=== PATIENT | male | born 2000 | race Caucasian/White ===

== ENCOUNTER 2019-04-23 13:32 | Inpatient (IN) ==
[2019-04-23] MEDS ORDERED: diazePAM 5 MG TABLET PO ONE (14:23)
[2019-04-23] MEDS ORDERED: HALOPERIDOL LACTATE 5 MG/ML 1 ML VIAL IM STA ×2 (15:25→15:52)
[2019-04-23] MEDS ORDERED: DiphenhydrAMINE HCL 50 MG/ML VIAL IM STA (15:52)
[2019-04-23] MEDS ORDERED: DiphenhydrAMINE HCL 50 MG/ML VIAL ONE (15:55)
[2019-04-23 16:40] LABS: Basophils # (auto) 0.02 K/uL (0-0.2); Basophils % (auto) 0.3 %; Eosinophils # (auto) 0.09 K/uL (0-0.5); Eosinophils % (auto) 1.2 %; Hematocrit (blood only) 44.4 % (42-52); Hemoglobin 16.1 g/dL (14.0-18.0); Immature Granulocytes # (auto) 0.02 K/uL (0.00-0.02); Immature Granulocytes % (auto) 0.3 %; Lymphocytes # (auto) 1.85 K/uL (1.2-3.4); Lymphocytes % (auto) 23.8 %; Mean Corpuscular Hemoglobin 31.8 pg (25-34); Mean Corpuscular Hgb Conc 36.3 g/dL (32-36); Mean Corpuscular Volume 87.6 fL (80-100); Mean Platelet Volume 8.4 fL (7.4-10.4); Monocytes # (auto) 0.84 K/uL (0.11-0.59); Monocytes % (auto) 10.8 %; Neutrophils # (auto) 4.95 K/uL (1.4-6.5); Neutrophils % (auto) 63.6 %; Platelet Count 279 K/uL (130-400); RDW Coefficient of Variation 12.5 % (11.5-14.5); RDW Standard Deviation 39.7 fL (36.4-46.3); Red Blood Count 5.07 M/uL (4.7-6.1); White Blood Count 7.77 K/uL (4.8-10.8)
[2019-04-23 17:02] LABS: Albumin Level 4.5 gm/dl (3.4-5.0); BUN Creatinine Ratio 17.3 (10-20); Calcium 9.2 mg/dl (8.5-10.1); Creatinine Clr Calc Pharmacy 134.4 ml/min; Est GFR (Non-African American) 111.3; Potassium 3.5 mmol/L (3.5-5.1)
[2019-04-23 17:04] LABS: Acetaminophen < 2 ug/ml (10-30)
[2019-04-23 17:05] LABS: Salicylate < 1.7 mg/dl (2.8-20)
[2019-04-23] MEDS ORDERED: LORazepam 2 MG/ML VIAL (IM USE) IM STA (17:08)
[2019-04-23] MEDS ORDERED: ZIPRASIDONE 20 MG/ML SDV IM PRN (17:08)
[2019-04-23 17:12] LABS: Albumin Globulin Ratio 1.3 (0.9-2); Bilirubin,Total 1.1 mg/dl (0.2-1); Globulin 3.3 gm/dl (2.5-4.0); Thyroid Stimulating Hormone 5.33 uIu/ml (0.300-4.500); Total Protein 7.8 gm/dl (6.4-8.2)
[2019-04-23 17:21] LABS: Appearance Urine Clear (Clear); Bacteria Urine Automated Negative (Negative); Bilirubin Urine Negative (Negative); Blood Urine Negative (Negative); Cast Urine Automated 0 /lpf (0-5); Color Urine Yellow; Glucose Urine UA Negative (Negative); Ketones Urine Negative (Negative); Leukocyte Esterase Urine Trace (Negative); Nitrite Urine Negative (Negative); Protein Urine Negative (Negative); RBC Urine Automated 0-4 /hpf (0-4); Specific Gravity Urine 1.013 (1.000-1.030); Urobilinogen Urine Negative (Negative)
[2019-04-23 17:25] LABS: Amphetamines+Metham, Urine Neg (Neg); Barbiturates, Urine Neg (Neg); Benzodiazepine, Urine Neg (Neg); Cocaine, Urine Neg (Neg); MDMA (Ecstacy), Urine Neg (Neg); Methadone, Urine Neg (Neg); Opiate, Urine Neg (Neg); Phencyclidine, Urine Neg (Neg)
[2019-04-23 17:26] LABS: T4 Free Thyroxine 1.21 ng/dl (0.8-1.6)
--- NOTE | 2019-04-23 17:38 | Emergency Department Note ---
Entered by Effie Alves acting as a scribe for Sharad Altamirano MD History of Present Illness General Chief complaint: Anxiety Stated complaint: PANIC ATTACKS,ANXIETY,UNABLE TO SLEEP Time Seen by Provider: 04/23/19 13:52 Source: patient Mode of arrival: ambulatory Limitations: no limitations History of Present Illness Onset (ago): day(s) 4 Location: head Pain Consistency: + constant Relieved By: + none Exacerbated By: + none Associated symptoms: + other (+abdominal pain) Treatments prior to arrival: other (Paxil) The patient is a 18 year old white male w/ PMHx of anxiety who presents to the ED w/ CC of worsening anxiety beginning 4 days ago. He was started on a new medication 4 days ago and states his anxiety has worsened since then. He reports "I feel like I can't get out of my own head". He is currently on break at [facility] and states about 1 month ago, he started having panic attacks. He does take Paxil that is prescribed by Dr. Solo, a family physician in [place]. He admits to passive thoughts of SI. He denies any HI. He has no access to guns or weapons. He has never tried to hurt himself in the past. He is currently living at home with his family and Mom feels comfortable taking him home. He denies any AVH. He admits to some abdominal pain that he thinks is related to his anxiety. Mom notes the patient was treated at the [place] [facility] this past weekend and was given a medication that briefly helped him calm down. Home Medications Home Medications Medication Instructions Recorded Confirmed Type Paxil 10 mg PO DAILY 04/23/19 04/23/19 History hydroxyzine HCl 25 mg PO DAILY PRN 04/23/19 04/23/19 History Allergies Allergy/AdvReac Type Severity Reaction Status Date / Time No Known Allergies Allergy Verified 04/23/19 14:14 Past Med/Surg History Medical History Anxiety Social History Preferred Language: Albanian Feels Safe at Home: Yes Smoking Status: Never smoker Review of Systems See HPI for pertinent positives & negatives. and A total of 10 systems reviewed and were otherwise negative Physical Exam Vital Signs Vital Signs - 24 hr 12/23/19 13:42 04/23/19 17:05 04/23/19 18:12 Temperature 36.5 C Temperature Source Oral Pulse Rate 101 H Pulse Rate [Apical] 98 H 73 Pulse Rhythm Regular Pulse Strength Normal Respiratory Rate 20 24 18 Respiratory Effort / Characteristics Non-Labored Spontaneous Respiratory Depth Normal Respiratory Pattern Regular Blood Pressure 132/80 Blood Pressure [Right Arm] 150/99 H Blood Pressure Mean 97 Blood Pressure Mean [Right Arm] 116 Blood Pressure Position Sitting Pulse Oximetry 97 97 96 Oxygen Delivery Method Room Air Room Air Sepsis Recent Fever Within 48 Hours No Sepsis New/Unexplained Change in Mental Status No Sepsis Action Taken by Nursing No Action Required 04/23/19 18:47 Temperature Temperature Source Pulse Rate 79 Pulse Rate [Apical] Pulse Rhythm Pulse Strength Respiratory Rate 18 Respiratory Effort / Characteristics Respiratory Depth Respiratory Pattern Blood Pressure 146/93 H Blood Pressure [Right Arm] Blood Pressure Mean Blood Pressure Mean [Right Arm] Blood Pressure Position Pulse Oximetry 97 Oxygen Delivery Method Room Air Sepsis Recent Fever Within 48 Hours Sepsis New/Unexplained Change in Mental Status Sepsis Action Taken by Nursing GENERAL: Patient is anxious appearing, well nourished, NAD, non-toxic. EYE EXAM: Normal conjunctiva. PERRL, no anisocoria and EOM's grossly intact w/o pain. OROPHARYNX: Moist mucous membranes. Grossly normal dentition. NECK: Supple, no nuchal rigidity, no adenopathy, non-tender. No signs of mening ismus. LUNGS: Clear to auscultation. Normal chest wall mechanics. HEART: NSR, no MRG. ABDOMEN: Abdomen soft, non-tender, normo-active bowel sounds, no masses, no rebound or guarding. BACK: No CVA TTP. SKIN: No rashes and no bruising. UPPER EXTREMITIES: Upper extremities are grossly normal. LOWER EXTREMITIES: No pitting edema. No calf pain. NEURO EXAM: A&O x3, cranial nerves II-XII grossly intact, normal speech, moves all 4 extremities on command w/o issue. PSYCHIATRIC: Passive SI without plan, no HI or AVH. Course Course 1413: The patient was evaluated in room A8 and a complete history and physical were performed. 1555: The patient is getting very agitated. We will try chemical sedation. 1710: Our psychiatric special education case manager informed me the patient is still agitated and will require additional medication. 0: Zain, our Psychiatric Lockstitcher informed me the patient will be going upstairs to [address]. Administered Medications Discontinued Medications Diazepam (Valium) 5 mg PO NOW ONE Stop: 04/23/19 14:24 Last Admin: 04/23/19 14:34 Dose: 5 mg Documented by: [id number] Diphenhydramine HCl (Benadryl) 50 mg IM NOW STA Stop: 04/23/19 15:53 Last Admin: 04/23/19 15:59 Dose: 50 mg Documented by: [id number] Diphenhydramine HCl (Benadryl) Confirm Administered Dose 50 mg .ROUTE .STK-MED ONE Stop: 04/23/19 15:56 Last Admin: 04/23/19 15:59 Dose: Not Given Documented by: [id number] Haloperidol Lactate (Haldol) 5 mg IM NOW STA Stop: 04/23/19 15:26 Last Admin: 04/23/19 15:32 Dose: 5 mg Documented by: [id number] Haloperidol Lactate (Haldol) 5 mg IM NOW STA Stop: 04/23/19 15:53 Last Admin: 04/23/19 15:58 Dose: 5 mg Documented by: [id number] Lorazepam (Ativan) 2 mg IM NOW STA Stop: 04/23/19 17:09 Last Admin: 04/23/19 17:23 Dose: 2 mg Documented by: [id number] Critical Care Time Critical Care Time: Yes Total Critical Care Time: 45 I have personally spent 45 minutes of critical care time in direct management of this patient. This includes bedside care, interpretation of diagnostic studies, and testing, discussion with consultants, patient, and family members, and other require inpatient management activities. This 45 minutes is in excess of all separately billable procedures. Medical Decision Making Differential Diagnosis Differential diagnoses considered include mood disorder, infection, hypoglycemia, electrolyte abnormalities, cardiac sources, intracerebral event, toxicologic, neurologic, as well as others. Medical Records Attestation: I reviewed the patient's medical records. Home Medications Current Medication List: was personally reviewed by me Laboratory Data Attestation: I reviewed the patient's lab results. Result diagrams: 04/23/19 16:23 04/23/19 16:23 Lab Results 04/23/19 04/23/19 04/23/19 Range/Units 13:49 13:49 16:23 WBC 7.77 (4.8-10.8) K/uL RBC 5.07 (4.7-6.1) M/uL Hgb 16.1 (14.0-18.0) g/dL Hct 44.4 (42-52) % MCV 87.6 (80-100) fL MCH 31.8 (25-34) pg MCHC 36.3 H (32-36) g/dL RDW Std Deviation 39.7 (36.4-46.3) fL RDW Coeff of Isela 12.5 (11.5-14.5) % Plt Count 279 (130-400) K/uL MPV 8.4 (7.4-10.4) fL Immature Gran % (Auto) 0.3 % Neut % (Auto) 63.6 % Lymph % (Auto) 23.8 % [place] % (Auto) 10.8 % Eos % (Auto) 1.2 % Baso % (Auto) 0.3 % Immature Gran # (Auto) 0.02 (0.00-0.02) K/uL Neut # (Auto) 4.95 (1.4-6.5) K/uL Lymph # (Auto) 1.85 (1.2-3.4) K/uL [place] # (Auto) 0.84 H (0.11-0.59) K/uL Eos # (Auto) 0.09 (0-0.5) K/uL Baso # (Auto) 0.02 (0-0.2) K/uL Sodium (136-145) mmol/L Potassium (3.5-5.1) mmol/L Chloride (98-107) mmol/L Carbon Dioxide (21-32) mmol/L Anion Gap (3-11) BUN (7-18) mg/dl Creatinine (0.6-1.4) mg/dl Est Cr Clr Drug Dosing ml/min Est GFR ( Amer) Est GFR (Non-Af Amer) BUN/Creatinine Ratio (10-20) Glucose (70-99) mg/dl Calcium (8.5-10.1) mg/dl Total Bilirubin (0.2-1) mg/dl AST (15-37) U/L ALT (12-78) U/L Alkaline Phosphatase (45-117) U/L Total Protein (6.4-8.2) gm/dl Albumin (3.4-5.0) gm/dl Globulin (2.5-4.0) gm/dl Albumin/Globulin Ratio (0.9-2) TSH (0.300-4.500) uIu/ml Free T4 (0.8-1.6) ng/dl Urine Color Yellow Urine Appearance Clear (Clear) Urine pH 8.0 H (4.5-7.5) Ur Specific [place] 1.013 (1.000-1.030) Urine Protein Negative (Negative) Urine Glucose (UA) Negative (Negative) Urine Ketones Negative (Negative) Urine Blood Negative (Negative) Urine Nitrite Negative (Negative) Urine Bilirubin Negative (Negative) Urine Urobilinogen Negative (Negative) Ur Leukocyte Esterase Trace H (Negative) Urine WBC (Auto) 10-30 H (0-5) /hpf Urine RBC (Auto) 0-4 (0-4) /hpf U Hyaline Cast (Auto) 0 (0-5) /lpf U Epithel Cells (Auto) 5-10 H (0-5) /lpf Urine Bacteria (Auto) Negative (Negative) Salicylates (2.8-20) mg/dl Urine Opiates Screen Neg (Neg) Ur Methadone, Qual Neg (Neg) Acetaminophen (10-30) ug/ml Urine Barbiturates Neg (Neg) Ur Phencyclidine (PCP) Neg (Neg) U Amphetamin/Meth Scrn Neg (Neg) MDMA (Ecstasy) Screen Neg (Neg) U Benzodiazepines Scrn Neg (Neg) Ur Cocaine Metabolite Neg (Neg) U Marijuana (THC) Screen Neg (Neg) Ethyl Alcohol mg/dL (0-3) mg/dl 04/23/19 04/23/19 04/23/19 Range/Units 16:23 16:23 16:23 WBC (4.8-10.8) K/uL RBC (4.7-6.1) M/uL Hgb (14.0-18.0) g/dL Hct (42-52) % MCV (80-100) fL MCH (25-34) pg MCHC (32-36) g/dL RDW Std Deviation (36.4-46.3) fL RDW Coeff of Isela (11.5-14.5) % Plt Count (130-400) K/uL MPV (7.4-10.4) fL Immature Gran % (Auto) % Neut % (Auto) % Lymph % (Auto) % [place] % (Auto) % Eos % (Auto) % Baso % (Auto) % Immature Gran # (Auto) (0.00-0.02) K/uL Neut # (Auto) (1.4-6.5) K/uL Lymph # (Auto) (1.2-3.4) K/uL [place] # (Auto) (0.11-0.59) K/uL Eos # (Auto) (0-0.5) K/uL Baso # (Auto) (0-0.2) K/uL Sodium 138 (136-145) mmol/L Potassium 3.5 (3.5-5.1) mmol/L Chloride 106 (98-107) mmol/L Carbon Dioxide 24 (21-32) mmol/L Anion Gap 8.0 (3-11) BUN 17 (7-18) mg/dl Creatinine 0.98 (0.6-1.4) mg/dl Est Cr Clr Drug Dosing 134.4 ml/min Est GFR ( Amer) 129.0 Est GFR (Non-Af Amer) 111.3 BUN/Creatinine Ratio 17.3 (10-20) Glucose 94 (70-99) mg/dl Calcium 9.2 (8.5-10.1) mg/dl Total Bilirubin 1.1 H (0.2-1) mg/dl AST 12 L (15-37) U/L ALT 13 (12-78) U/L Alkaline Phosphatase 95 (45-117) U/L Total Protein 7.8 (6.4-8.2) gm/dl Albumin 4.5 (3.4-5.0) gm/dl Globulin 3.3 (2.5-4.0) gm/dl Albumin/Globulin Ratio 1.3 (0.9-2) TSH 5.330 H (0.300-4.500) uIu/ml Free T4 1.21 (0.8-1.6) ng/dl Urine Color Urine Appearance (Clear) Urine pH (4.5-7.5) Ur Specific [place] (1.000-1.030) Urine Protein (Negative) Urine Glucose (UA) (Negative) Urine Ketones (Negative) Urine Blood (Negative) Urine Nitrite (Negative) Urine Bilirubin (Negative) Urine Urobilinogen (Negative) Ur Leukocyte Esterase (Negative) Urine WBC (Auto) (0-5) /hpf Urine RBC (Auto) (0-4) /hpf U Hyaline Cast (Auto) (0-5) /lpf U Epithel Cells (Auto) (0-5) /lpf Urine Bacteria (Auto) (Negative) Salicylates < 1.7 L (2.8-20) mg/dl Urine Opiates Screen (Neg) Ur Methadone, Qual (Neg) Acetaminophen < 2 L (10-30) ug/ml Urine Barbiturates (Neg) Ur Phencyclidine (PCP) (Neg) U Amphetamin/Meth Scrn (Neg) MDMA (Ecstasy) Screen (Neg) U Benzodiazepines Scrn (Neg) Ur Cocaine Metabolite (Neg) U Marijuana (THC) Screen (Neg) Ethyl Alcohol mg/dL < 3.0 (0-3) mg/dl ECG Data Attestation: I personally reviewed and interpreted this ECG as follows: Indication: + other (anxiety) Rate (beats per minute): 72 Rhythm: + normal sinus ECG [place]: + Normal ECG ST segments: + T-wave inversions (Inferior) ECG Findings: + Other (Normal intervals, no STS changes) Comparison ECG Date: no prior available Blood Pressure Blood Pressure Findings: Elevated blood pressure Blood Pressure Disposition: further management by hospitalist [facility] Narrative The patient is a 18 year old white male w/ PMHx of anxiety who presents to the ED w/ CC of worsening anxiety beginning 4 days ago. Patient was seen and evaluated the bedside. The patient did present with increasing panic and anxiety. The patient has been unable to sleep for the last 4 days. The patient was recently started on Paxil and hydroxyzine but without relief and believes that these this is made his symptoms worse. Patient is currently not in any extremitas and I did discuss the possibility of just try by mouth medications and if he improves there could be a reasonable safety plan as the patient had complained of some suicidal ideation but it was passive and related to his panic attacks and anxiety. The patient did receive Valium but did not improve so the patient was given some injection intramuscular medications. The patient continued to be more agitated. Due to concern for the safety patient as well as staff the patient did receive additional chemical sedation. Patient subsequently did have blood work completed along with an EKG. EKG does show T wave inversions but no chest pains. The patient was deemed medically cleared and the patient was able to settle down after additional medications. Patient was subsequently mated to [address] for additional treatment. Impression & Plan Anxiety, Panic attack, Lack of adequate sleep, Suicidal ideation Discharge Plan Visit Data Chief Complaint: Anxiety Stated Complaint: PANIC ATTACKS,ANXIETY,UNABLE TO SLEEP ED Provider: Sharad Altamirano Discharge Problem: Anxiety, Panic attack, Lack of adequate sleep, Suicidal ideation Patient Disposition: Still a Patient Discharge Instructions Interventions: ED Discharge Assessment Last Done: 04/23/19 18:47 Forms Stand Alone Forms: My [facility], Suicide Prevention Resources Prescriptions Prescriptions: No Action Paxil 10 mg tablet 10 mg PO DAILY RF: 0 hydroxyzine HCl 25 mg tablet 25 mg PO DAILY PRN (Reason: Anxiety) RF: 0 Referrals Referrals: Kimberly Pyle DO [Primary Care Provider] - The scribe's documentation has been prepared under my direction and personally reviewed by me in its entirety. I confirm that the note above accurately reflects all work, treatment, procedures, and medical decision making performed by me.
[2019-04-23] MEDS ORDERED: ACETAMINOPHEN 325 MG TAB PO PRN (19:01)
[2019-04-23] MEDS ORDERED: MAGNESIUM HYDROXIDE SUSP 30 ML UDC PO PRN (19:01)
[2019-04-23] MEDS ORDERED: SODIUM CHLORIDE 0.65% NA SOLN 45 ML (OCEAN) PRN (19:01)
[2019-04-23] MEDS ORDERED: BISMUTH SUBSALICYLATE PER ML OMNICELL CHARGE PO PRN (19:01)
[2019-04-23] MEDS ORDERED: ALUMINUM/MAGNESIUM SUSP 30 ML UDC PO PRN (19:01)
[2019-04-23] MEDS ORDERED: hydrOXYzine HCl 10 MG TAB PO PRN (19:04)
[2019-04-23] MEDS ORDERED: CHLORPROMAZINE HCL 25 MG TABLET PO PRN (19:06)
--- NOTE | 2019-04-24 11:28 | History & Physical ---
Date of Service April 24, 2019 Impression / Recommendations Impression 18-year-old male college student with a history of anxiety, treated successfully in the past with therapy, now with return of symptoms over the past month and severe worsening over the past 4 days in the context of starting paroxetine. Reports a feeling of "constant panic," with restlessness, inability to sleep, extremely elevated energy, impaired focus, which is very distressing and leading to suicidal thoughts. The differential includes severe anxiety and bipolar disorder. He reports a history of mood instability over the past 6 months, and it certainly appears he was activated by the SSRI, and he has a strong family history of bipolar disorder, so we will treat as a manic episode and avoid antidepressants. (1) Suicidal ideation: Continue voluntary hospitalization. Patient is admitted to 72-hour notice; explained to him that I do not feel he is safe for discharge currently given the severity of his symptoms and lack of any discharge plan. His mother has been contacted by staff and agrees he is not stable for discharge. Will encourage him to rescind the noticed and engage fully in treatment. -Once his symptoms are under better control, he will need a family meeting with parents, including review of recommendations to limit access to medications, firearms, and other means of suicide. Present on Admission?: Yes (2) Anxiety: 04/24 -patient reporting constant symptoms of panic since starting paroxetine 4 days ago, and prior to that reports intermittent panic attacks, constant worrying, and unstable mood. -Stop paroxetine, and offer clonazepam 1 mg every 6 hours as needed panic. -Staff to assist the patient in behavioral techniques for managing anxiety. Present on Admission?: Yes (3) Bipolar 1 disorder: 04/24 -patient reports a history of unstable moods over the past 6 months, with periods of depression and hypomania/lori. He is a somewhat limited historian at this time due to the severity of his current symptoms, so collateral information from family would be helpful. He has a strong family history of bipolar disorder, and is clearly activated on an SSRI, so current working diagnosis is bipolar. We will avoid antidepressants and start olanzapine 5 mg twice daily and 2.5 mg as needed. Reviewed risks, benefits, and side effects, and will get fasting labs if he is going to stay on this medication. -Chlorpromazine 100 mg at bedtime as needed sleep. -For for outpatient treatment with a psychiatrist and therapist. Present on Admission?: Yes Inventory Assets Strengths: Supportive family Needs: Symptom control, regular therapy Risk Factors Assessment Male: Yes : Yes Health Problems: No Mental Health Diagnoses: Yes Substance Use Disorders: No Previous Attempt: No Family History of Suicide: No Previous Psychiatric Hospitalization: No Hopelessness: Yes Smoker: No Protective Factors Assessment : No Responsible for Young Children: No Employed: No Supportive Family: Yes Good Rapport with Provider: No Psychiatric History Identifying Data CODY SALAZAR is a 18-year-old M from [place] who attends [employer], has a history of anxiety recently diagnosed/treated by his PCP, and was admitted on 04/23/19 19:01 on a 201 voluntary commitment after presenting to the ER with inability to sleep, anxiety, restlessness, and agitation. Chief Complaint "Yesterday I hadn't slept for 4 days really, still haven't slept at all, having panic attacks every second". History of Present Illness Patient presented to the ER yesterday, 04/23/2019, reporting worsening anxiety and inability to sleep. He stated that he developed panic attacks about 1 month ago, saw his PCP last week who started Paxil 10 mg, after which symptoms worsened. He reported he been unable to sleep for the past 5 days and "cannot get out of my head." He is a freshman at [employer], just finished the first semester, did well, and returned home for the holidays. He reported hopelessness and suicidal thoughts, stating he did not want to be alive "if this is how I am going to feel." His mother reported that he struggled with anxiety during his gregg year of high school, and saw a therapist at that time with improvement until about a month ago. He was unable to identify any exacerbating factors/stressors. He was noted to be tremulous, restless, and extremely anxious in the ER, felt he was "losing it," and received Haldol 5 mg IM asked to, Lorazepam 2 mg, diazepam 5 mg, and diphenhydramine 50 mg. Admission labs notable for elevated TSH 5.330, with normal T4 1.21. CBC and CMP normal, UA unremarkable, UDS negative. Upon arrival to the unit, he received hydroxyzine 100 mg, and slept poorly overnight, frequently awakening and reporting high anxiety. This morning received chlorpromazine 50 mg. He submitted a 72-hour notice requesting to withdrawal from treatment, stating he was bored. yarn worker spoke with his mother, who stated that he was placed on on academic probation at the end of his freshman year last year which caused some anxiety. He did better academically this semester, but 1 month ago started to worry about things like people dying. His mother was informed that he submitted a 72-hour notice, and expressed concerns about this, feeling that he needed treatment and was not stable. On my assessment, he states he has been having constant panic, with shaking, fearfulness, crying, which started 4 days ago when he started paroxetine. Prior to that he had anxiety "that wasn't that bad, calm stuff." He is unable to explain his anxiety symptoms prior to 4 days ago. States he was sleeping 6-7 hours a night until he started paroxetine . 04/19, and had "really bad panic attacks all night, couldn't sleep." States he was also taking OTC sleeping pills, doesn't know name, one tab a night. Appetite has been decreased since ., not eating. Denies exacerbating and alleviating symptoms, "just panic and fear, can't do anything about it." States he is afraid of "just random stuff, dying, racing thoughts." Mood is "restless and shaky," with frequent crying spells. He is not bathing or putting on clean clothes, and has been "trying to do everything to distract myself to change it, but it wasn't working." States he came to [facility] because "didn't want it to be [place], because people would know." States that in college he was "out of control, had panic attacks randomly," about once a week, with symptoms lasting 10 minutes. Reports unstable mood over the past semester, with periods of low mood for several days, then elevated mood for several days. Reports racing thoughts, talking excessively, but denies increase in goal directed or risk taking behavior. States his current symptoms are similar to what he experienced in HS, "but way worse." Denies psychotic symptoms, HI, OCD, PTSD. Reports suicidal thoughts over the past few days, stating he doesn't want to live like this, "it's terrible, can't get relief, just scared." When asked about his request to leave, he says "I want to go home, be with my family, I can't take this, just so scared." States he has wondered if he has bipolar disorder, as multiple relatives have it. Past Psychiatric History Previous Psych History: History of anxiety -gregg year in high school saw a counselor and symptoms improved. Current Psychiatric Diagnosis: Depression and Anxiety Outpatient Services: Has never seen a psychiatrist. Saw Vanessa at [facility] once last week, but did not make a follow up appt. Previous Psych Admissions: Denies History of Previous Suicide Attempt: No Past Medication Trials: Paxil 10 mg started last week by PCP, Dr. Kimberly Pyle in [place] Allergies Allergy/AdvReac Type Severity Reaction Status Date / Time No Known Allergies Allergy Verified 04/23/19 14:14 Home Medications Home Medications Medication Instructions Recorded Confirmed Type Paxil 10 mg PO DAILY 04/23/19 04/23/19 History hydroxyzine HCl 25 mg PO DAILY PRN 04/23/19 04/23/19 History Family History Family History of: Bipolar Family Mental Health History Comment: On the maternal side, pts grandmother and uncle have bipolar disorder. Alcohol History Hx of Alcohol Use Over the Past 12 Months: Yes ("Socially") Smoking Use Have You Smoked or Used Tobacco Products in the Last 30 Days: No Smoking Status: Never smoker Substance History Hx of Prescription Med Misuse Over the Past 12 Months: No Hx of Over the Counter Med Misuse Over the Past 12 Months: No Hx of Inhalent Misuse Over the Past 12 Months: No Hx of Organic Substance Use Over the Past 12 Months: Yes (smoking pot daily until 1 month ago) Hx of Illegal Substances/Street Drug Use Over Past 12 Months: No Problems as a Result of Past Substance Use: None Identified Reports he was drinking on weekends (6-7 beers/day) and smoking pot daily until 1 month ago, then stopped when anxiety became problematic. Denies cocaine and stimulant use. Personal History Living Arrangements: Home Living Arrangements Comments: Lives with parents in [place] when not at school Childhood: Grew up in [place] Highest Grade Completed: Some College Highest Grade Completed Comment: [employer] student, majoring in sports Administration, and states that his grades are good. Employment Status: Student Marital Status: Single Number Of Children: 0 Beliefs That Will Affect Care: None Current Legal Problems: No Hx Traumatic Life Events: No Patient History Medical History Anxiety Social History Preferred Language: Thai Communication Ability: Effective Roll Tester Required: No Beliefs That Will Affect Care: None Feels Safe at Home: Yes Smoking Status: Never smoker Review of Systems Review of Systems: All systems reviewed & are unremarkable except as noted in HPI & below Physical Exam Psychiatric: Orientation: alert and cooperative Apperance: appropriately dressed Malodorous and unkempt. Tall, very thin. Appears distraught. Eye Contact: + poor eye contact Motor Behavior: + psychomotor agitation (Bouncing feet up and down throughout the assessment) Speech: normal rate/rhythm/volume of speech Affect: + depressed affect, + anxious affect and mood congruent with affect Mood: + depressed mood and + anxious mood Thought Process: + thought process not linear or logical Thought Content: + preoccupation (With anxiety and feeling poorly) and + hopelessness Reports feeling overwhelmed, unable to rationally manipulate information Suicidal Thoughts: + reports suicidal thoughts Homicidal Thoughts: denies homicidal thoughts Hallucinations: no auditory hallucinations and no visual hallucinations Cognition: attention grossly intact (Have to repeat questions and redirect multiple times as often answers with unrelated information, appears anxiety related rather than psychotic in nature) and language grossly intact; + recent memory not intact Insight: + impaired insight Judgement: + impaired judgement Vital Signs (Past 24 Hours): Last Vital Signs Temp 36.6 C 04/24/19 08:08 Pulse 86 04/24/19 08:08 Resp 18 04/24/19 08:08 BP 159/99 H 04/24/19 08:08 Pulse Ox 97 04/23/19 18:47 Exam Statement: A physical exam was performed in the ER prior to admission to the unit by Dr. Sharad Altamirano. I accept that physical as correct/medical clearance for the inpatient physical exam. Results & Data Laboratory Results Laboratory Results - last 24 hr 04/23/19 04/23/19 04/23/19 13:49 13:49 16:23 WBC 7.77 RBC 5.07 Hgb 16.1 Hct 44.4 MCV 87.6 MCH 31.8 MCHC 36.3 H RDW Std Deviation 39.7 RDW Coeff of Isela 12.5 Plt Count 279 MPV 8.4 Immature Gran % (Auto) 0.3 Neut % (Auto) 63.6 Lymph % (Auto) 23.8 Gregg % (Auto) 10.8 Eos % (Auto) 1.2 Baso % (Auto) 0.3 Immature Gran # (Auto) 0.02 Neut # (Auto) 4.95 Lymph # (Auto) 1.85 Gregg # (Auto) 0.84 H Eos # (Auto) 0.09 Baso # (Auto) 0.02 Sodium Potassium Chloride Carbon Dioxide Anion Gap BUN Creatinine Est Cr Clr Drug Dosing Est GFR ( Amer) Est GFR (Non-Af Amer) BUN/Creatinine Ratio Glucose Calcium Total Bilirubin AST ALT Alkaline Phosphatase Total Protein Albumin Globulin Albumin/Globulin Ratio TSH Free T4 Urine Color Yellow Urine Appearance Clear Urine pH 8.0 H Ur Specific [place] 1.013 Urine Protein Negative Urine Glucose (UA) Negative Urine Ketones Negative Urine Blood Negative Urine Nitrite Negative Urine Bilirubin Negative Urine Urobilinogen Negative Ur Leukocyte Esterase Trace H Urine WBC (Auto) 10-30 H Urine RBC (Auto) 0-4 U Hyaline Cast (Auto) 0 U Epithel Cells (Auto) 5-10 H Urine Bacteria (Auto) Negative Salicylates Urine Opiates Screen Neg Ur Methadone, Qual Neg Acetaminophen Urine Barbiturates Neg Ur Phencyclidine (PCP) Neg U Amphetamin/Meth Scrn Neg MDMA (Ecstasy) Screen Neg U Benzodiazepines Scrn Neg Ur Cocaine Metabolite Neg U Marijuana (THC) Screen Neg Ethyl Alcohol mg/dL 04/23/19 04/23/19 04/23/19 16:23 16:23 16:23 WBC RBC Hgb Hct MCV MCH MCHC RDW Std Deviation RDW Coeff of Isela Plt Count MPV Immature Gran % (Auto) Neut % (Auto) Lymph % (Auto) Gregg % (Auto) Eos % (Auto) Baso % (Auto) Immature Gran # (Auto) Neut # (Auto) Lymph # (Auto) Gregg # (Auto) Eos # (Auto) Baso # (Auto) Sodium 138 Potassium 3.5 Chloride 106 Carbon Dioxide 24 Anion Gap 8.0 BUN 17 Creatinine 0.98 Est Cr Clr Drug Dosing 134.4 Est GFR ( Amer) 129.0 Est GFR (Non-Af Amer) 111.3 BUN/Creatinine Ratio 17.3 Glucose 94 Calcium 9.2 Total Bilirubin 1.1 H AST 12 L ALT 13 Alkaline Phosphatase 95 Total Protein 7.8 Albumin 4.5 Globulin 3.3 Albumin/Globulin Ratio 1.3 TSH 5.330 H Free T4 1.21 Urine Color Urine Appearance Urine pH Ur Specific [place] Urine Protein Urine Glucose (UA) Urine Ketones Urine Blood Urine Nitrite Urine Bilirubin Urine Urobilinogen Ur Leukocyte Esterase Urine WBC (Auto) Urine RBC (Auto) U Hyaline Cast (Auto) U Epithel Cells (Auto) Urine Bacteria (Auto) Salicylates < 1.7 L Urine Opiates Screen Ur Methadone, Qual Acetaminophen < 2 L Urine Barbiturates Ur Phencyclidine (PCP) U Amphetamin/Meth Scrn MDMA (Ecstasy) Screen U Benzodiazepines Scrn Ur Cocaine Metabolite U Marijuana (THC) Screen Ethyl Alcohol mg/dL < 3.0 Current Inpatient Medications Current Inpatient Medications: Current Inpatient Medications Acetaminophen (Tylenol) 650 mg PO Q4H PRN PRN Reason: Headache or Minor Fever Stop: 05/23/19 19:00 Al Hydrox/Mg Hydrox/Simethicone (Maalox) 30 ml PO Q4H PRN PRN Reason: GI Upset Stop: 05/23/19 19:00 Bismuth Subsalicylate (Kaopectate) 15 ml PO PRN PRN PRN Reason: Loose Stool Stop: 05/23/19 19:00 Chlorpromazine HCl (Thorazine) 50 mg PO HS PRN PRN Reason: Anxiety Stop: 05/23/19 19:05 Last Admin: 04/24/19 10:19 Dose: 50 mg Documented by: Hydroxyzine HCl (Vistaril) 50 mg PO HSZ PRN PRN Reason: Insomnia Stop: 05/23/19 19:00 Hydroxyzine HCl (Vistaril) 25 mg PO Q4H PRN PRN Reason: Anxiety Stop: 05/23/19 19:00 Hydroxyzine HCl (Vistaril) 100 mg PO HS PRN PRN Reason: Insomnia Stop: 05/24/19 01:08 Last Admin: 04/24/19 01:22 Dose: 100 mg Documented by: Magnesium Hydroxide (Milk Of Magnesia) 30 ml PO DAILY PRN PRN Reason: Constipation Stop: 05/23/19 19:00 Sodium Chloride ([place] Nasal) 1 - 2 sprays NA PRN PRN PRN Reason: Nasal Dryness/Congestion Stop: 05/23/19 19:00 Ziprasidone (Geodon) 10 mg IM ONE PRN PRN Reason: Agitation Stop: 05/23/19 17:07
[2019-04-24] MEDS ORDERED: OLANZAPINE 2.5 MG TAB PO PRN (11:42)
[2019-04-24] MEDS ORDERED: clonazePAM 1 MG TAB PO PRN (11:54)
[2019-04-24] MEDS ORDERED: CHLORPROMAZINE HCL 100 MG TABLET PO PRN (11:57)
[2019-04-24] MEDS: OLANZapine 5 MG TABLET PO SCH (12:13)
--- NOTE | 2019-04-25 09:32 | Psychiatric Progress Note ---
Date of Service April 25, 2019 Impression / Recommendations Impression 18-year-old male college student with a history of anxiety, treated successfully in the past with therapy, now with return of symptoms over the past month and severe worsening over the 5 days prior to hospitalization in the context of starting paroxetine. Reports a feeling of "constant panic," with restlessness, inability to sleep, extremely elevated energy, impaired focus, which is very distressing and led to suicidal thoughts. The differential includes severe anxiety and bipolar disorder. He reports a history of mood instability over the past 6 months, was activated by the SSRI, and he has a strong family history of bipolar disorder, so we will treat as a manic episode and avoid antidepressants. (1) Suicidal ideation: Continue voluntary hospitalization. Patient is admitted to 72-hour notice; explained to him that I do not feel he is safe for discharge currently given the severity of his symptoms and lack of any discharge plan. His mother has been contacted by staff and agrees he is not stable for discharge. Will encourage him to rescind the noticed and engage fully in treatment. -Once his symptoms are under better control, he will need a family meeting with parents, including review of recommendations to limit access to medications, firearms, and other means of suicide. 04/25 -patient refusing to rescind his 72-hour notice, which expires 04/27/2019 -He will need a family meeting with parents as he was unable to participate yesterday. -He will need referral for outpatient treatment (possibly at [facility], with bridge appointment with PCP in the meantime) -Encouraged him to work on coping skills and discharge safety plan (2) Anxiety: 04/24 -patient reporting constant symptoms of panic since starting paroxetine 4 days ago, and prior to that reports intermittent panic attacks, constant worrying, and unstable mood. -Stop paroxetine, and offer clonazepam 1 mg every 6 hours as needed panic. -Staff to assist the patient in behavioral techniques for managing anxiety. (3) Bipolar 1 disorder: 04/24 -patient reports a history of unstable moods over the past 6 months, with periods of depression and hypomania/lori. He is a somewhat limited historian at this time due to the severity of his current symptoms, so collateral information from family would be helpful. He has a strong family history of bipolar disorder, and is clearly activated on an SSRI, so current working diagnosis is bipolar. We will avoid antidepressants and start olanzapine 5 mg twice daily and 2.5 mg as needed. Reviewed risks, benefits, and side effects, and will get fasting labs if he is going to stay on this medication. -Chlorpromazine 100 mg at bedtime as needed sleep. -For for outpatient treatment with a psychiatrist and therapist. 04/25 -family meeting held yesterday with patient's parents, as he submitted a request withdrawal from treatment and they expressed concern. Diagnosis and the need for outpatient treatment were discussed. They will likely need another meeting prior to discharge as the patient was not able to participate. -Continue olanzapine, check fasting labs tomorrow morning for baseline on an atypical, and continue to provide education about the differential diagnosis and treatment recommendations. -Refer for outpatient treatment as above. Inventory Assets Strengths: Supportive family Needs: Symptom control, regular therapy Risk Factors Assessment Male: Yes : Yes Health Problems: No Mental Health Diagnoses: Yes Substance Use Disorders: No Previous Attempt: No Family History of Suicide: No Previous Psychiatric Hospitalization: No Hopelessness: Yes Smoker: No Protective Factors Assessment : No Responsible for Young Children: No Employed: No Supportive Family: Yes Good Rapport with Provider: No Interval History Identifying Information CODY SALAZAR is a 18-year-old M from [place] who attends [facility], has a history of anxiety recently diagnosed/treated by his PCP, and was admitted on 04/23/19 19:01 on a 201 voluntary commitment after presenting to the ER with inability to sleep, anxiety, restlessness, and agitation. Chief Complaint " Better, I slept". Review of Systems Sleep Information Total Hours of Sleep: 11 Sleep Comments: pt appeared to sleep four hrs during evening shift. pt on q-15 minute checks Meal Information Percent Meal Consumed - Breakfast: 25 Percent Meal Consumed - Lunch: 50 Subjective Subjective Patient was seen & assessed and interval progress reviewed with nursing. Staff report he received multiple as needed medications yesterday for anxiety, including chlorpromazine and clonazepam. He reported persistent anxiety, restlessness, and eventually fell asleep mid afternoon. He submitted a 72-hour notice requesting to be discharged, and his mother was informed and expressed concern. A family meeting was held with his parents in the afternoon, and the patient did not attend his he had finally fallen asleep. His parents indicated he had a history of anxiety in the past, although not to this degree, and that it was usually triggered by stressful events. They stated that he grew up with his grandparents living with the family, and decompensated after his grandfather 2 years ago. Additionally, his grandmother has recently been very ill, and they believe the stress of school and his grandmother's illness or exacerbating factors. His parents also stated that the patient recently had a conversation with his girlfriend about not having children because he did not want them to suffer from anxiety like he did. On my assessment, the patient was seen in his room, where he has returned to bed but is awake. He states he feels much better today, anxiety is reduced significantly, and he slept well overnight. He thinks that the olanzapine has been very helpful, and denies any side effects to medications. He reports a good visit with his parents yesterday, and states they are coming again to visit today. He remains very anxious to be discharged, stating he is bored here and "I just want to go home." He states he has no outpatient treatment, and although he recently saw a new PCP, does not have a follow-up appointment scheduled. He has not started to work on his safety plan, and cannot describe how he would manage anxiety should it return after discharge. Reviewed treatment recommendations with him in detail, including the need to have a meeting with parents and arrange outpatient treatment, and encouraged him to start working on his patient workbook with specific attention to coping skills and his safety plan. Reviewed recommendations to rescind his 72-hour notice and fully engage in treatment to ensure that he is stable before discharge, which he does not want to do. Physical Exam Psychiatric Orientation: alert; + uncooperative (Partially cooperative) Apperance: appropriately dressed and appeared stated age Very thin, malodorous Eye Contact: + poor eye contact Motor Behavior: steady gait and station and no abnormal motor movements Minimal speech, slightly rapid Affect: + anxious affect But less so than on admission "Better." Thought Process: goal directed thought process Irrational; states anxiety has been so severe has been unable to function or do anything, feels unable to continue in that state, but simultaneously asking to leave immediately as he feels slightly improved, despite having no outpatient plan. Thought Content: + cognitive distortions Suicidal Thoughts: denies suicidal thoughts Homicidal Thoughts: denies homicidal thoughts Hallucinations: no auditory hallucinations Cognition: recent memory grossly intact and language grossly intact Insight: + limited insight Judgement: + limited judgement Vital Signs (Past 24 Hours) Last Vital Signs Temp 36.6 C 04/24/19 08:08 Pulse 86 04/24/19 08:08 Resp 18 04/24/19 08:08 BP 159/99 H 04/24/19 08:08 Pulse Ox 97 04/23/19 18:47 Results & Data Current Inpatient Medications Current Inpatient Medications: Current Inpatient Medications Acetaminophen (Tylenol) 650 mg PO Q4H PRN PRN Reason: Headache or Minor Fever Stop: 05/23/19 19:00 Al Hydrox/Mg Hydrox/Simethicone (Maalox) 30 ml PO Q4H PRN PRN Reason: GI Upset Stop: 05/23/19 19:00 Bismuth Subsalicylate (Kaopectate) 15 ml PO PRN PRN PRN Reason: Loose Stool Stop: 05/23/19 19:00 Chlorpromazine HCl (Thorazine) 100 mg PO HS PRN PRN Reason: Anxiety Stop: 05/23/19 19:05 Clonazepam (Klonopin) 1 mg PO Q6 PRN PRN Reason: Anxiety Stop: 05/24/19 11:53 Last Admin: 04/24/19 12:13 Dose: 1 mg Documented by: Hydroxyzine HCl (Vistaril) 25 mg PO Q4H PRN PRN Reason: Anxiety Stop: 05/23/19 19:00 Hydroxyzine HCl (Vistaril) 100 mg PO HS PRN PRN Reason: Insomnia Stop: 05/24/19 01:08 Last Admin: 04/24/19 01:22 Dose: 100 mg Documented by: Magnesium Hydroxide (Milk Of Magnesia) 30 ml PO DAILY PRN PRN Reason: Constipation Stop: 05/23/19 19:00 Olanzapine (Zyprexa) 5 mg PO BID QUINTIN Stop: 05/24/19 11:44 Last Admin: 04/24/19 12:13 Dose: 5 mg Documented by: Olanzapine (Zyprexa) 2.5 mg PO Q6 PRN PRN Reason: Anxiety Stop: 05/24/19 11:59 Sodium Chloride ([place] Nasal) 1 - 2 sprays NA PRN PRN PRN Reason: Nasal Dryness/Congestion Stop: 05/23/19 19:00 Mental Health & Subst Abuse Tx Therapist Name of Therapist: [facility] Liquid Natural [employer] Plant Operator Name of Liquid Natural Gas Plant Operator: Denies/None Post Discharge Appointments Primary Care Physician Name Of Family Doctor: Dr. Pyle
[2019-04-25] MEDS: OLANZapine 5 MG TABLET PO SCH ×2 (10:23→14:42)
[2019-04-25] MEDS ORDERED: BENZTROPINE MESYLATE 1 MG TAB PO STA (16:15)
[2019-04-25] MEDS ORDERED: BENZTROPINE MESYLATE 1 MG/ML 2 ML AMP IM PRN (16:15)
[2019-04-25] MEDS ORDERED: BENZTROPINE MESYLATE 1 MG TAB PO PRN (16:15)
--- NOTE | 2019-04-25 16:45 | Communication Note ---
Date of Service: April 25, 2019 Patient reported uncomfortable jaw stiffness and was observed with mouth open, was able to swallow water so ordered benztropine 2mg. He reported improvement 20 min later. Decreased olanzapine dose to 2.5mg bid.
[2019-04-25] MEDS: OLANZAPINE 2.5 MG TAB PO SCH (21:26)
[2019-04-26 07:27] LABS: Glucose Fasting 90 mg/dl (70-99)
[2019-04-26 07:34] LABS: Chol HDL Ratio 4; Cholesterol 136 mg/dl (0-200); HDL Cholesterol 36 mg/dl; LDL Cholesterol Calculated 82 mg/dl; Triglycerides 91 mg/dl (0-150); VLDL Cholesterol 18 mg/dl
[2019-04-26] MEDS: OLANZAPINE 2.5 MG TAB PO SCH (08:34)
--- NOTE | 2019-04-26 10:12 | Psychiatric Progress Note ---
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 Reports a feeling of "constant panic," with restlessness, inability to sleep, extremely elevated energy, impaired focus, which is very distressing and led to suicidal thoughts. The differential includes severe anxiety and bipolar disorder. He reports a history of mood instability over the past 6 months, was activated by the SSRI, and he has a strong family history of bipolar disorder, so we will treat as a manic episode and avoid antidepressants. Patient did experience dystonic reaction after several doses of olanzapine, twice daily dosing was subsequently tapered to 2.5 mg. We will further reduce that to 2.5 mg nightly, but continue available as needed dosing if necessary throughout day. Although patient reports significant improvement in his condition and resolution of suicidal ideation, it remains highly concerning that he does not yet have aftercare arrangements or a clear safety plan. Patient will be encouraged to work on these throughout the day today, in preparation for likely discharge soon. Patient is at high risk of destabilization of mood and possible harm to self if he is discharged prematurely without adequate follow-up appointments and outpatient support services. (1) Suicidal ideation: Continue voluntary hospitalization. Patient is admitted to 72-hour notice; explained to him that I do not feel he is safe for discharge currently given the severity of his symptoms and lack of any discharge plan. His mother has been contacted by staff and agrees he is not stable for discharge. Will encourage him to rescind the noticed and engage fully in treatment. -Once his symptoms are under better control, he will need a family meeting with parents, including review of recommendations to limit access to medications, firearms, and other means of suicide. 04/25 -patient refusing to rescind his 72-hour notice, which expires 04/27/2019 -He will need a family meeting with parents as he was unable to participate yesterday. -He will need referral for outpatient treatment (possibly at [facility], with bridge appointment with PCP in the meantime) -Encouraged him to work on coping skills and discharge safety plan 04/26 - Denies SI, refusing to rescind 72-hr notice. Not planning for discharge today as patient remains at high risk of mood destabilization and recurrence of SI with premature discharge - especially as he does not have a solidified aftercare plan for outpatient follow up. - Follow-up on aftercare referrals - Encourage patient to invest time in completion of a safety plan (2) Anxiety: 04/24 -patient reporting constant symptoms of panic since starting paroxetine 4 days ago, and prior to that reports intermittent panic attacks, constant worrying, and unstable mood. -Stop paroxetine, and offer clonazepam 1 mg every 6 hours as needed panic. -Staff to assist the patient in behavioral techniques for managing anxiety. 04/26 - Pt reporting improvement in anxiety - Continue to encourage attendance of group and recreational programming (3) Bipolar 1 disorder: 04/24 -patient reports a history of unstable moods over the past 6 months, with periods of depression and hypomania/lori. He is a somewhat limited historian at this time due to the severity of his current symptoms, so collateral information from family would be helpful. He has a strong family history of bipolar disorder, and is clearly activated on an SSRI, so current working diagnosis is bipolar. We will avoid antidepressants and start olanzapine 5 mg twice daily and 2.5 mg as needed. Reviewed risks, benefits, and side effects, and will get fasting labs if he is going to stay on this medication. -Chlorpromazine 100 mg at bedtime as needed sleep. -For for outpatient treatment with a psychiatrist and therapist. 04/25 -family meeting held yesterday with patient's parents, as he submitted a request withdrawal from treatment and they expressed concern. Diagnosis and the need for outpatient treatment were discussed. They will likely need another meeting prior to discharge as the patient was not able to participate. -Continue olanzapine, check fasting labs tomorrow morning for baseline on an atypical, and continue to provide education about the differential diagnosis and treatment recommendations. -Refer for outpatient treatment as above. 04/26 - Continue olanzapine, reducing dose to 2.5mg qHS - continue to have prn dosing available - Fasting labs obtained this morning, all values WNL - reviewed with patient - Discussed importance of monitoring for changes in mood related symptoms, in order to clarify diagnosis further - Follow-up on referrals for aftercare Inventory Assets Strengths: Supportive family Needs: Symptom control, regular therapy Risk Factors Assessment Male: Yes : Yes Health Problems: No Mental Health Diagnoses: Yes Substance Use Disorders: No Previous Attempt: No Family History of Suicide: No Previous Psychiatric Hospitalization: No Hopelessness: Yes Smoker: No Protective Factors Assessment : No Responsible for Young Children: No Employed: No Supportive Family: Yes Good Rapport with Provider: No Interval History Identifying Information CODY SALAZAR is a 18-year-old M from [place] who attends [employer], has a history of anxiety recently diagnosed/treated by his PCP, and was admitted on 04/23/19 19:01 on a 201 voluntary commitment after presenting to the ER with inability to sleep, anxiety, restlessness, and agitation. Chief Complaint "I have been sleeping really well, and I have not had any panic attacks. I am feeling better than I have in a long time." Review of Systems Notes Constitutional: Reports significant improvement in sleep Cardiovascular: denied Respiratory: denied Gastrointestinal: denied Neurological: denied Psychiatric: denies symptoms other than stated above Total of at least 10 systems reviewed, pertinent positives as above and in HPI. Sleep Information Total Hours of Sleep: 7 Sleep Comments: pt appeared to sleep four hrs during evening shift. pt on q-15 minute checks Meal Information Percent Meal Consumed - Breakfast: 95 Percent Meal Consumed - Lunch: 100 Percent Meal Consumed - Dinner: 100 Nutrition Comment: pt. declined Subjective Subjective Patient was seen & assessed and interval progress reviewed with treatment team. Patient 72-hour notice remains active, expiring on 04/27 at 11:07. Staff reports the patient continues to participate in group and recreational programming. He is appearing far less anxious compared to admission. Patient did experience a dystonic reaction yesterday, and dose of olanzapine was subsequently lowered. Patient rated his mood a 9/10 and "positive" last evening. Concern remains that patient has yet to invest effort in safety planning, and aftercare arrangements remain uncertain. Patient was seen today to assess progress since admission. He reports significant improvement in his mood and anxiety since admission. Patient is particularly happy that he has been sleeping well, as "I did not sleep for 4 days before I came in here." Patient reports perceived benefit since initiating olanzapine, and has been tolerating his current dose. Patient does state "I feel like I do not really need the daytime dose, but the bedtime one is still really helpful." Given concern for prior dystonic reaction, and significant improvement in symptoms, we did discuss reducing olanzapine to scheduled dosing only at at bedtime. Patient was reminded of PRN olanzapine availability, and encouraged to utilize the medication if necessary. It was reviewed with the patient that there is ongoing concern for no current aftercare arrangements. Patient remains willing for therapy and psychiatry referrals, and although admits to improvement in his condition, does agree that these appointments are important for long-term success. We continue to review the importance of monitoring mood symptoms, in order to get a more clear diagnostic picture moving forward. Patient was encouraged to focus on his safety plan, which he admits he has not yet completed. Patient did get fasting blood work today, reviewed results within normal limits during patient encounter. Patient denies suicidal ideation today, he also denies other needs or concerns from staff. Physical Exam Psychiatric Orientation: alert, oriented x 3 and cooperative (And pleasant) Apperance: appropriately dressed, appropriately groomed and appeared stated age Eye Contact: good eye contact Motor Behavior: steady gait and station and no abnormal motor movements Speech: normal rate/rhythm/volume of speech Affect: euthymic affect and mood congruent with affect Mood: no depressed mood ("I am feeling great, I feel a lot better") Thought Process: goal directed thought process, clear/coherent thought process and thought association intact Thought Content: reality based without delusions; no preoccupation, no hopelessness and no worthlessness Suicidal Thoughts: denies suicidal thoughts and denies suicidal intent Homicidal Thoughts: denies homicidal thoughts Hallucinations: no auditory hallucinations and no visual hallucinations Cognition: remote memory grossly intact, attention grossly intact and language grossly intact Insight: + fair insight Judgement: + fair judgement Vital Signs (Past 24 Hours) Last Vital Signs Temp 36.5 C 04/26/19 06:46 Pulse 77 04/26/19 06:47 Resp 18 04/26/19 06:46 BP 131/92 04/26/19 06:47 Pulse Ox 97 04/23/19 18:47 Results & Data Laboratory Results Laboratory Results - last 24 hr 04/26/19 07:00 Fasting Glucose 90 Triglycerides 91 Cholesterol 136 LDL Cholesterol, Calc 82 VLDL Cholesterol, Calc 18 HDL Cholesterol 36 Cholesterol/HDL Ratio 4 Current Inpatient Medications Current Inpatient Medications: Current Inpatient Medications Acetaminophen (Tylenol) 650 mg PO Q4H PRN PRN Reason: Headache or Minor Fever Stop: 05/23/19 19:00 Al Hydrox/Mg Hydrox/Simethicone (Maalox) 30 ml PO Q4H PRN PRN Reason: GI Upset Stop: 05/23/19 19:00 Benztropine Mesylate (Cogentin) 1 mg PO Q2H PRN PRN Reason: EPS Stop: 05/25/19 16:14 Benztropine Mesylate (Cogentin) 1 mg IM PRN PRN PRN Reason: EPS Stop: 05/25/19 16:14 Last Admin: 04/25/19 17:25 Dose: 1 mg Documented by: Bismuth Subsalicylate (Kaopectate) 15 ml PO PRN PRN PRN Reason: Loose Stool Stop: 05/23/19 19:00 Chlorpromazine HCl (Thorazine) 100 mg PO HS PRN PRN Reason: Anxiety Stop: 05/23/19 19:05 Clonazepam (Klonopin) 1 mg PO Q6 PRN PRN Reason: Anxiety Stop: 05/24/19 11:53 Last Admin: 04/24/19 12:13 Dose: 1 mg Documented by: Hydroxyzine HCl (Vistaril) 25 mg PO Q4H PRN PRN Reason: Anxiety Stop: 05/23/19 19:00 Hydroxyzine HCl (Vistaril) 100 mg PO HS PRN PRN Reason: Insomnia Stop: 05/24/19 01:08 Last Admin: 04/24/19 01:22 Dose: 100 mg Documented by: Magnesium Hydroxide (Milk Of Magnesia) 30 ml PO DAILY PRN PRN Reason: Constipation Stop: 05/23/19 19:00 Olanzapine (Zyprexa) 2.5 mg PO Q6 PRN PRN Reason: Anxiety Stop: 05/24/19 11:59 Olanzapine (Zyprexa) 2.5 mg PO HS QUINTIN Stop: 05/26/19 21:59 Sodium Chloride ([place] Nasal) 1 - 2 sprays NA PRN PRN PRN Reason: Nasal Dryness/Congestion Stop: 05/23/19 19:00 Mental Health & Subst Abuse Tx Therapist Name of Therapist: [facility] Extrusion Machine Operator Name of Extrusion Machine Operator: Denies/None Post Discharge Appointments Primary Care Physician Name Of Family Doctor: Dr. Pyle
[2019-04-26] MEDS ORDERED: OLANZAPINE 2.5 MG TAB PO SCH (22:00)
--- NOTE | 2019-04-27 09:57 | Discharge Summary ---
Date of Service April 27, 2019 History of Present Illness Patient presented to the ER yesterday, 04/23/2019, reporting worsening anxiety and inability to sleep. He stated that he developed panic attacks about 1 month ago, saw his PCP last week who started Paxil 10 mg, after which symptoms worsened. He reported he been unable to sleep for the past 5 days and "cannot get out of my head." He is a freshman at [employer], just finished the first semester, did well, and returned home for the holidays. He reported hopelessness and suicidal thoughts, stating he did not want to be alive "if this is how I am going to feel." His mother reported that he struggled with anxiety during his gregg year of high school, and saw a therapist at that time with improvement until about a month ago. He was unable to identify any exacerbating factors/stressors. He was noted to be tremulous, restless, and extremely anxiou s in the ER, felt he was "losing it," and received Haldol 5 mg IM asked to, Lorazepam 2 mg, diazepam 5 mg, and diphenhydramine 50 mg. Admission labs notable for elevated TSH 5.330, with normal T4 1.21. CBC and CMP normal, UA unremarkable, UDS negative. Upon arrival to the unit, he received hydroxyzine 100 mg, and slept poorly overnight, frequently awakening and reporting high anxiety. This morning received chlorpromazine 50 mg. He submitted a 72-hour notice requesting to withdrawal from treatment, stating he was bored. ceramic worker spoke with his mother, who stated that he was placed on on academic probation at the end of his freshman year last year which caused some anxiety. He did better academically this semester, but 1 month ago started to worry about things like people dying. His mother was informed that he submitted a 72-hour notice, and expressed concerns about this, feeling that he needed treatment and was not stable. On my assessment, he states he has been having constant panic, with shaking, fearfulness, crying, which started 4 days ago when he started paroxetine. Prior to that he had anxiety "that wasn't that bad, calm stuff." He is unable to explain his anxiety symptoms prior to 4 days ago. States he was sleeping 6-7 hours a night until he started paroxetine Th. 04/19, and had "really bad panic attacks all night, couldn't sleep." States he was also taking OTC sleeping pills, doesn't know name, one tab a night. Appetite has been decreased since ., not eating. Denies exacerbating and alleviating symptoms, "just panic and fear, can't do anything about it." States he is afraid of "just random stuff, dying, racing thoughts." Mood is "restless and shaky," with frequent crying spells. He is not bathing or putting on clean clothes, and has been "tr jennifer to do everything to distract myself to change it, but it wasn't working." States he came to [facility] because "didn't want it to be [place], because people would know." States that in college he was "out of control, had panic attacks randomly," about once a week, with symptoms lasting 10 minutes. Reports unstable mood over the past semester, with periods of low mood for several days, then elevated mood for several days. Reports racing thoughts, talking excessively, but denies increase in goal directed or risk taking behavior. States his current symptoms are similar to what he experienced in HS, "but way worse." Denies psychotic symptoms, HI, OCD, PTSD. Reports suicidal thoughts over the past few days, stating he doesn't want to live like this, "it's terrible, can't get relief, just scared." When asked about his request to leave, he says "I want to go home, be with my family, I can't take this, just so scared." States he has wondered if he has bipolar disorder, as multiple relatives have it. Physical Exam Psychiatric Orientation: alert, oriented x 3 and cooperative (and pleasant) Apperance: appropriately dressed, appropriately groomed and appeared stated age Eye Contact: good eye contact Motor Behavior: steady gait and station and no abnormal motor movements Speech: normal rate/rhythm/volume of speech Affect: euthymic affect and mood congruent with affect Mood: no depressed mood ("I'm feeling great, excited to get home.") Thought Process: goal directed thought process and clear/coherent thought process; no perseveration Thought Content: reality based without delusions; no preoccupation, no hopelessness and no worthlessness Suicidal Thoughts: denies suicidal thoughts, denies suicidal plan and denies suicidal intent Homicidal Thoughts: denies homicidal thoughts Hallucinations: no auditory hallucinations and no visual hallucinations Cognition: attention grossly intact and language grossly intact Insight: good insight Judgement: good judgement Vital Signs (Past 24 Hours) Last Vital Signs Temp 36.7 C 04/27/19 06:00 Pulse 75 04/27/19 06:41 Resp 16 04/27/19 06:00 BP 133/87 04/27/19 06:41 Pulse Ox 97 04/23/19 18:47 Principal Diagnosis - R/O bipolar 1 disorder - Anxiety disorder Psychiatric Data 18-year-old male college student with a history of anxiety, treated successfully in the past with therapy, now with return of symptoms over the past month and severe worsening over the 5 days prior to hospitalization in the context of starting paroxetine. Pt reported a feeling of "constant panic," with restlessness, inability to sleep, extremely elevated energy, impaired focus, which is very distressing and led to suicidal thoughts. The differential includes severe anxiety and bipolar disorder. He reported a history of mood instability over the past 6 months, was activated by the SSRI, and he has a strong family history of bipolar disorder, so decision was made to treat as a manic episode and avoid antidepressant medications. Pt was initiated on olanzapine, and did experience dystonic reaction after several doses. Pt received one injection of benztropine which led to resolution of symptoms. Twice daily dosing was subsequently tapered to 2.5 mg, and further reduced to 2.5 mg nightly. Over the course of the patient's hospitalization, he participated in group and recreational programming. Patient involved parents in discharge planning, and a family meeting was held with mother to discuss safety and aftercare plan prior to discharge. Patient did submit a 72-hour notice, requesting to leave treatment. Patient continued on a voluntary psychiatric admission until expiration of that notice, due to inability to arrange aftercare more rapidly. It was felt that patient continue to be at high risk of harm to self and recurrence of symptoms if he was discharged without an appropriate safety and aftercare plan. Patient remained cooperative with treatment until day of discharge, and denied recurrence of severe anxiety, mood instability, or suicidal ideation. Patient was future oriented during conversations, and was agreeable with referrals for outpatient therapy and medication management. Appointments have been scheduled to allow for timely follow-up after hospital discharge. Based on review of patient's case and their current presentation, risk of harm to self or others is no longer perceived to be acute. Management of symptoms on an outpatient basis seems the most appropriate and least restrictive setting. Pt seems appropriate for discharge with recommendation for consistent follow-up with outpatient psychiatric prescriber and therapist. Pt verbalized understanding of discharge plan reviewed and is agreeable with plan to be discharged home today. Day of Discharge Assessment Patient's case was reviewed and discussed during treatment team. Staff reports the patient continues to be cooperative with treatment, attending group and recreational programming routinely. Patient is scheduled for a family meeting with his mother this morning, prior to anticipated discharge. 72-hour notice remains in place, and expires this morning at 11:07. Patient has continued to deny suicidal ideation, and aftercare was able to be arranged yesterday to allow for follow-up after discharge. Patient was seen today to assess readiness for discharge. Patient states that he has been doing well today, stating that he is "excited" for discharge. Patient has continued to keep busy by attending group and recreational programming. Patient believes that his mother is driving up for a family meeting this morning, and will be transporting him home afterward. Patient denies continued suicidal ideation, and is future oriented in conversation. Patient admits to having completed a safety plan, which he is able to verbalize to this provider. Patient continues to feel that his anxiety has been maintained at an appropriate level, and continues to be willing to take medications after discharge. Aftercare plan was reviewed with the patient, as he was reminded of therapy and medication management appointments scheduled for May. Discharge plan was reviewed with the patient who verbalized understanding and is agreeable with returning home today. ROS: Constitutional: denied Cardiovascular: denied Respiratory: denied Gastrointestinal: denied Neurological: denied Psychiatric: denies symptoms other than stated above Total of at least 10 systems reviewed, pertinent positives as above and in HPI. Transition of Care Transition Of Care Record: was reviewed with the patient Advance Directives Advance Directives Information Provided: Yes Advance Directives: No Mental Health Advance Directive: No Advance Directives on File: No Living Will: No Power of Lumber Mover: No Advance Directives Reason:: Declines as Mental Health Visit. Risk Factors Assessment Presenting risk factors reviewed on discharge. Precipitating stressors mitigated by: admission for inpatient psychiatric observation and treatment, initiation of medications to target presenting symptoms, attendance of therapeutic treatment groups, development of healthy and effective coping stra tegies, involvement of outpatient supports, completion of a safety plan, confirmation of guns and weapons being secured, discussion regarding substance abuse and effects on mental health diagnoses, and education on diagnoses. Pt has demonstrated improvement in condition with regard to improvement in anxiety, increased stability of mood, resolution of SI, engagement in group programming, involvement of family in discharge/safety planning, and completion of a safety plan. At this time, patient is requesting discharge and is no longer considered to be at acute risk of harm to himself or others. Pt will be discharged with recommendation for ongoing outpatient psychiatric treatment. Male: Yes : Yes Health Problems: No Mental Health Diagnoses: Yes Substance Use Disorders: No Previous Attempt: No Family History of Suicide: No Previous Psychiatric Hospitalization: No Hopelessness: Yes Smoker: No Protective Factors Assessment : No Responsible for Young Children: No Employed: No Supportive Family: Yes Good Rapport with Provider: No Tobacco Cessation at Discharge Tobacco Cessation Medication Prescribed at Discharge: Not Applicable/Non-Smoker Total Time Total Time Spent: Greater Than 30 Minutes Total Time Includes: Examination of the patient, Discharge Planning, Medication Reconciliation and Communication with other providers Discharge Data Lab Results 04/23/19 04/23/19 04/23/19 13:49 13:49 16:23 WBC 7.77 RBC 5.07 Hgb 16.1 Hct 44.4 MCV 87.6 MCH 31.8 MCHC 36.3 H RDW Std Deviation 39.7 RDW Coeff of Isela 12.5 Plt Count 279 MPV 8.4 Immature Gran % (Auto) 0.3 Neut % (Auto) 63.6 Lymph % (Auto) 23.8 [place] % (Auto) 10.8 Eos % (Auto) 1.2 Baso % (Auto) 0.3 Immature Gran # (Auto) 0.02 Neut # (Auto) 4.95 Lymph # (Auto) 1.85 [place] # (Auto) 0.84 H Eos # (Auto) 0.09 Baso # (Auto) 0.02 Sodium Potassium Chloride Carbon Dioxide Anion Gap BUN Creatinine Est Cr Clr Drug Dosing Est GFR ( Amer) Est GFR (Non-Af Amer) BUN/Creatinine Ratio Glucose Fasting Glucose Calcium Total Bilirubin AST ALT Alkaline Phosphatase Total Protein Albumin Globulin Albumin/Globulin Ratio Triglycerides Cholesterol LDL Cholesterol, Calc VLDL Cholesterol, Calc HDL Cholesterol Cholesterol/HDL Ratio TSH Free T4 Urine Color Yellow Urine Appearance Clear Urine pH 8.0 H Ur Specific Bryan 1.013 Urine Protein Negative Urine Glucose (UA) Negative Urine Ketones Negative Urine Blood Negative Urine Nitrite Negative Urine Bilirubin Negative Urine Urobilinogen Negative Ur Leukocyte Esterase Trace H Urine WBC (Auto) 10-30 H Urine RBC (Auto) 0-4 U Hyaline Cast (Auto) 0 U Epithel Cells (Auto) 5-10 H Urine Bacteria (Auto) Negative Salicylates Urine Opiates Screen Neg Ur Methadone, Qual Neg Acetaminophen Urine Barbiturates Neg Ur Phencyclidine (PCP) Neg U Amphetamin/Meth Scrn Neg MDMA (Ecstasy) Screen Neg U Benzodiazepines Scrn Neg Ur Cocaine Metabolite Neg U Marijuana (THC) Screen Neg Ethyl Alcohol mg/dL 04/23/19 04/23/19 04/23/19 16:23 16:23 16:23 WBC RBC Hgb Hct MCV MCH MCHC RDW Std Deviation RDW Coeff of Isela Plt Count MPV Immature Gran % (Auto) Neut % (Auto) Lymph % (Auto) [place] % (Auto) Eos % (Auto) Baso % (Auto) Immature Gran # (Auto) Neut # (Auto) Lymph # (Auto) [place] # (Auto) Eos # (Auto) Baso # (Auto) Sodium 138 Potassium 3.5 Chloride 106 Carbon Dioxide 24 Anion Gap 8.0 BUN 17 Creatinine 0.98 Est Cr Clr Drug Dosing 134.4 Est GFR ( Amer) 129.0 Est GFR (Non-Af Amer) 111.3 BUN/Creatinine Ratio 17.3 Glucose 94 Fasting Glucose Calcium 9.2 Total Bilirubin 1.1 H AST 12 L ALT 13 Alkaline Phosphatase 95 Total Protein 7.8 Albumin 4.5 Globulin 3.3 Albumin/Globulin Ratio 1.3 Triglycerides Cholesterol LDL Cholesterol, Calc VLDL Cholesterol, Calc HDL Cholesterol Cholesterol/HDL Ratio TSH 5.330 H Free T4 1.21 Urine Color Urine Appearance Urine pH Ur Specific Bryan Urine Protein Urine Glucose (UA) Urine Ketones Urine Blood Urine Nitrite Urine Bilirubin Urine Urobilinogen Ur Leukocyte Esterase Urine WBC (Auto) Urine RBC (Auto) U Hyaline Cast (Auto) U Epithel Cells (Auto) Urine Bacteria (Auto) Salicylates < 1.7 L Urine Opiates Screen Ur Methadone, Qual Acetaminophen < 2 L Urine Barbiturates Ur Phencyclidine (PCP) U Amphetamin/Meth Scrn MDMA (Ecstasy) Screen U Benzodiazepines Scrn Ur Cocaine Metabolite U Marijuana (THC) Screen Ethyl Alcohol mg/dL < 3.0 04/26/19 07:00 WBC RBC Hgb Hct MCV MCH MCHC RDW Std Deviation RDW Coeff of Isela Plt Count MPV Immature Gran % (Auto) Neut % (Auto) Lymph % (Auto) [place] % (Auto) Eos % (Auto) Baso % (Auto) Immature Gran # (Auto) Neut # (Auto) Lymph # (Auto) [place] # (Auto) Eos # (Auto) Baso # (Auto) Sodium Potassium Chloride Carbon Dioxide Anion Gap BUN Creatinine Est Cr Clr Drug Dosing Est GFR ( Amer) Est GFR (Non-Af Amer) BUN/Creatinine Ratio Glucose Fasting Glucose 90 Calcium Total Bilirubin AST ALT Alkaline Phosphatase Total Protein Albumin Globulin Albumin/Globulin Ratio Triglycerides 91 Cholesterol 136 LDL Cholesterol, Calc 82 VLDL Cholesterol, Calc 18 HDL Cholesterol 36 Cholesterol/HDL Ratio 4 TSH Free T4 Urine Color Urine Appearance Urine pH Ur Specific Bryan Urine Protein Urine Glucose (UA) Urine Ketones Urine Blood Urine Nitrite Urine Bilirubin Urine Urobilinogen Ur Leukocyte Esterase Urine WBC (Auto) Urine RBC (Auto) U Hyaline Cast (Auto) U Epithel Cells (Auto) Urine Bacteria (Auto) Salicylates Urine Opiates Screen Ur Methadone, Qual Acetaminophen Urine Barbiturates Ur Phencyclidine (PCP) U Amphetamin/Meth Scrn MDMA (Ecstasy) Screen U Benzodiazepines Scrn Ur Cocaine Metabolite U Marijuana (THC) Screen Ethyl Alcohol mg/dL Hospital Course (1) Suicidal ideation: Continue voluntary hospitalization. Patient is admitted to 72-hour notice; explained to him that I do not feel he is safe for discharge currently given the severity of his symptoms and lack of any discharge plan. His mother has been contacted by staff and agrees he is not stable for discharge. Will encourage him to rescind the noticed and engage fully in treatment. -Once his symptoms are under better control, he will need a family meeting with parents, including review of recommendations to limit access to medications, firearms, and other means of suicide. 04/25 -patient refusing to rescind his 72-hour notice, which expires 04/27/2019 -He will need a family meeting with parents as he was unable to participate yesterday. -He will need referral for outpatient treatment (possibly at [facility], with bridge appointment with PCP in the meantime) -Encouraged him to work on coping skills and discharge safety plan 04/26 - Denies SI, refusing to rescind 72-hr notice. Not planning for discharge today as patient remains at high risk of mood destabilization and recurrence of SI with premature discharge - especially as he does not have a solidified aftercare plan for outpatient follow up. - Follow-up on aftercare referrals - Encourage patient to invest time in completion of a safety plan (2) Anxiety: 04/24 -patient reporting constant symptoms of panic since starting paroxetine 4 days ago, and prior to that reports intermittent panic attacks, constant worrying, and unstable mood. -Stop paroxetine, and offer clonazepam 1 mg every 6 hours as needed panic. -Staff to assist the patient in behavioral techniques for managing anxiety. 04/26 - Pt reporting improvement in anxiety - Continue to encourage attendance of group and recreational programming (3) Bipolar 1 disorder: 04/24 -patient reports a history of unstable moods over the past 6 months, with periods of depression and hypomania/lori. He is a somewhat limited historian at this time due to the severity of his current symptoms, so collateral information from family would be helpful. He has a strong family history of bipolar disorder, and is clearly activated on an SSRI, so current working diagnosis is bipolar. We will avoid antidepressants and start olanzapine 5 mg twice daily and 2.5 mg as needed. Reviewed risks, benefits, and side effects, and will get fasting labs if he is going to stay on this medication. -Chlorpromazine 100 mg at bedtime as needed sleep. -For for outpatient treatment with a psychiatrist and therapist. 04/25 -family meeting held yesterday with patient's parents, as he submitted a request withdrawal from treatment and they expressed concern. Diagnosis and the need for outpatient treatment were discussed. They will likely need another meeting prior to discharge as the patient was not able to participate. -Continue olanzapine, check fasting labs tomorrow morning for baseline on an atypical, and continue to provide education about the differential diagnosis and treatment recommendations. -Refer for outpatient treatment as above. 04/26 - Continue olanzapine, reducing dose to 2.5mg qHS - continue to have prn dosing available - Fasting labs obtained this morning, all values WNL - reviewed with patient - Discussed importance of monitoring for changes in mood related symptoms, in order to clarify diagnosis further - Follow-up on referrals for aftercare Mental Health & Subst Abuse Tx Psychiatrist Name of Psychiatrist: Raquel Starr Psychiatrist's Date of Appointment with Psychiatrist: 05/16/19 Time of Appointment with Psychiatrist: 9:30 Psychiatrist Release of Information: Obtained, Reviewed and Signed Therapist Name of Therapist: Dwight Rodriguez Christiana Therapist's Date of Therapist Appointment: 05/11/19 Time of Therapist Appointment: 2:30pm Therapy Appointment Comment: This is scheduled as teletherapy Therapist Release of Information: Obtained, Reviewed and Signed Allergist/Immunologist Physician Name of Allergist/Immunologist Physician: Denies/None Post Discharge Appointments Primary Care Phys[facility] Date of Appointment with PCP: 04/30/19 Time of Appointment with PCP: 9:45 Primary Care Release of Information: Obtained, Reviewed and Signed Smoking Cessation Counseling Tobacco Cessation Medication Prescribed at Discharge: Not Applicable/Non-Smoker Contact Information Discharge Discharge Address: [address] [place] [address] Discharge Plan Discharge Items Patient Disposition: Home - Self-Care Reason For Visit: DEPRESSION NOS Discharge Diagnosis: - R/O bipolar I disorder - Anxiety disorder Condition on Discharge: Good Activity: Resume your previous activity Non-emergency contact: Primary Care Provider, Psychiatrist and Therapist Call non-emergency contact if: you have any medication questions and your symptoms worsen Follow-up/Referrals: Kimberly Pyle DO [Primary Care Provider] - Diet: Regular Addtl Attending Provider Instructions: SPECIAL CARE INSTRUCTIONS: 1. Follow through with your scheduled aftercare appointments. If unable to keep an appointment, please call to reschedule. 2. Take your medication only as prescribed. Medication should not be changed or stopped without the approval of your doctor. In the event of worsening symptoms or concerns about side effects, contact your doctor immediately. 3. Utilize new healthy coping skills, anger management skills, and stress management skills learned during your hospitalization. Journal feelings and process them with a support person. Identify stressors or situations that may result in relapse, deterioration or inappropriate behaviors and develop a plan to deal with those issues. 4. If your coping skills are ineffective and you are in crisis, contact your outpatient providers for direction. If unable to reach your providers, please call the CAN HELP LINE AT or go to the closest Emergency Room. 5. Avoid alcohol and un-prescribed drugs. 6. You have been provided with the Mental Health Advance Directives Pamphlet for your review. AFTERCARE APPOINTMENTS: * Please call your insurance company prior to your scheduled appointment to confirm your aftercare providers are covered. Take your insurance information to your appointments. WHO TO CALL AND WHEN: Medical Emergencies: For questions or emergencies related to your hospital stay, please contact the Inpatient Behavioral Health Unit at [phone]. A caustics loader is on-call 22/11 for the Behavioral Health Unit for emergencies At any time you feel your situation is an emergency, you may also call 911 immediately. Your Discharge Instructions noted above were prepared by provider Mary Pérez PA-C. Pending Studies at Discharge: No Stand-Alone Forms: My [facility], Smoking Cessation, Suicide Prevention Resources Medications and DC Order Prescriptions: New olanzapine 2.5 mg Tablet 2.5 mg PO HS 30 Days Qty: 30 RF: 0 Continued hydroxyzine HCl 25 mg tablet 25 mg PO DAILY PRN (Reason: Anxiety) RF: 0 Discontinued Paxil 10 mg tablet 10 mg PO DAILY RF: 0 Discharge Orders: Discharge Order (Routine); Ordered 04/27/19 Ordered By: Mary Pérez Admission Data Admit Date/Time: 04/23/19 19:01 Attending Provider: Archana Engle Admit Provider: Archana Engle Primary Care Provider: Kimberly Pyle Other Interventions: Discharge Summary Assessment (RN) Last Done: 04/27/19 09:54 PSY Interdisciplinary Discharge Planning Last Done: 04/27/19 09:55 DC Date/Time DO NOT enter until pt leaves facility: 04/27/19 10:51 Coding Level of Care Code 41661 D/C day mgmt > 30 min Diagnoses Suicidal ideation R45.851 Anxiety F41.9 Bipolar 1 disorder F31.9
== END 2019-04-27 10:51 | disposition home or self-care (01) | DRG 885 ==
LOC: ED 13:32 → 3S 18:47

== ENCOUNTER 2019-05-27 21:41 | Inpatient (IN) ==
[2019-05-27] MEDS ORDERED: LORazepam 1 MG TAB PO STA (22:21)
[2019-05-27 22:51] LABS: Appearance Urine Cloudy (Clear); Bacteria Urine Automated Negative (Negative); Bilirubin Urine Negative (Negative); Blood Urine Negative (Negative); Cast Urine Automated 0 /lpf (0-5); Color Urine Yellow; Epithelial Cell Urine Auto 0-5 /lpf (0-5); Glucose Urine UA Negative (Negative); Ketones Urine Negative (Negative); Leukocyte Esterase Urine Negative (Negative); Nitrite Urine Negative (Negative); Protein Urine Negative (Negative); RBC Urine Automated 0-4 /hpf (0-4); Urobilinogen Urine Negative (Negative); WBC Urine Automated 0 /hpf (0-5)
[2019-05-27 22:53] LABS: Basophils # (auto) 0.03 K/uL (0-0.2); Basophils % (auto) 0.3 %; Eosinophils # (auto) 0.08 K/uL (0-0.5); Eosinophils % (auto) 0.8 %; Hematocrit (blood only) 40.9 % (42-52); Hemoglobin 14.3 g/dL (14.0-18.0); Immature Granulocytes # (auto) 0.04 K/uL (0.00-0.02); Immature Granulocytes % (auto) 0.4 %; Lymphocytes # (auto) 2.69 K/uL (1.2-3.4); Lymphocytes % (auto) 25.8 %; Mean Corpuscular Hemoglobin 31.2 pg (25-34); Mean Corpuscular Volume 89.1 fL (80-100); Mean Platelet Volume 8.3 fL (7.4-10.4); Monocytes # (auto) 1.03 K/uL (0.11-0.59); Monocytes % (auto) 9.9 %; Neutrophils # (auto) 6.55 K/uL (1.4-6.5); Neutrophils % (auto) 62.8 %; Platelet Count 273 K/uL (130-400); RDW Coefficient of Variation 13.1 % (11.5-14.5); RDW Standard Deviation 42.2 fL (36.4-46.3); Red Blood Count 4.59 M/uL (4.7-6.1); White Blood Count 10.42 K/uL (4.8-10.8)
[2019-05-27 23:05] LABS: Amphetamines+Metham, Urine Neg (Neg); Barbiturates, Urine Neg (Neg); Benzodiazepine, Urine Neg (Neg); Cocaine, Urine Neg (Neg); MDMA (Ecstacy), Urine Neg (Neg); Methadone, Urine Neg (Neg); Opiate, Urine Neg (Neg); Phencyclidine, Urine Neg (Neg)
[2019-05-27 23:14] LABS: Albumin Level 4.3 gm/dl (3.4-5.0); BUN Creatinine Ratio 17.7 (10-20); Creatinine Clr Calc Pharmacy 140.4 ml/min; Est GFR (African American) 122.9; Est GFR (Non-African American) 106.1; Potassium 3.4 mmol/L (3.5-5.1)
[2019-05-27 23:24] LABS: Albumin Globulin Ratio 1.3 (0.9-2); Bilirubin,Total 1.1 mg/dl (0.2-1); Globulin 3.2 gm/dl (2.5-4.0); Thyroid Stimulating Hormone 4.23 uIu/ml (0.300-4.500); Total Protein 7.5 gm/dl (6.4-8.2)
[2019-05-27 23:48] LABS: Acetaminophen < 2 ug/ml (10-30); Salicylate < 1.7 mg/dl (2.8-20)
--- NOTE | 2019-05-28 01:25 | Emergency Department Note ---
Entered by Lisette Arechiga acting as a scribe for Sharad Altamirano MD History of Present Illness General Chief complaint: Anxiety Stated complaint: CONSTANT ANXIETY,PANICK ATTACKS Time Seen by Provider: 05/27/19 21:55 Source: patient History of Present Illness Onset (ago): day(s) 1 Severity: similar to prior episodes Pain Consistency: + constant Maximum Pain Intensity: 6 Current Pain Intensity: 6 Relieved By: + none Associated symptoms: + denies other symptoms (denies SI, HI, and AVH); no loss of appetite Treatments prior to arrival: none The patient is a 18 year old male who presents to the ED w/ CC of anxiety beginning 2 months ago but worsened today. His parents note that his symptoms of anxiety and panic have been worsening. The patient keeps thinking about dying, and continues to believe he will have panic attacks. This is preventing him from doing all his regular activities. His parents report that he has not been social. They report normal appetite and sleep. The patient denies SI, HI, and AVH Home Medications Home Medications Medication Instructions Recorded Confirmed Type buspirone 5 mg PO BID 05/27/19 05/27/19 History lamotrigine 25 mg PO BID 05/27/19 05/27/19 History olanzapine 10 mg PO DAILY 05/27/19 05/27/19 History Allergies Allergy/AdvReac Type Severity Reaction Status Date / Time No Known Allergies Allergy Verified 05/27/19 21:59 Past Med/Surg History Medical History (Updated 05/28/19 @ 01:24 by Sharad Altamirano MD) Bipolar 1 disorder Surgical History No pertinent past surgical history Social History Preferred Language: Lao Communication Ability: Effective 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 and A total of 10 systems reviewed and were otherwise negative Physical Exam Vital Signs Vital Signs - 24 hr 05/27/19 21:47 Temperature 36.8 C Temperature Source Oral Pulse Rate 107 H Respiratory Rate 18 Respiratory Effort / Characteristics Non-Labored Respiratory Depth Normal Respiratory Pattern Regular Blood Pressure 134/89 Blood Pressure Mean 104 Pulse Oximetry 95 Oxygen Delivery Method Room Air Sepsis Recent Fever Within 48 Hours No Sepsis Action Taken by Nursing No Action Required GENERAL: Anxious appearing, well nourished, NAD, non-toxic. EYE EXAM: Normal conjunctiva. PERRL, no anisocoria and EOM's grossly intact w/o pain. OROPHARYNX: Moist mucous membranes. Grossly normal dentition. NECK: Supple, no nuchal rigidity, no adenopathy, non-tender. No signs of meningismus. LUNGS: Clear to auscultation. Normal chest wall mechanics. HEART: NSR, no MRG. ABDOMEN: Abdomen soft, non-tender, normo-active bowel sounds, no masses, no rebound or guarding. BACK: No CVA TTP. SKIN: No rashes and no bruising. UPPER EXTREMITIES: Upper extremities are grossly normal. LOWER EXTREMITIES: No pitting edema. No calf pain. NEURO EXAM: A&O x3, cranial nerves II-XII grossly intact, normal speech, moves all 4 extremities on command w/o issue. PSYCH: No SI, HI and AVH. Course Course 2344: Past medical records reviewed. The patient was evaluated in room A08. A complete history and physical exam was performed. 0130: The patient was accepted for inpatient psychiatric treatment on 3S. Administered Medications Discontinued Medications Lorazepam (Ativan) 1 mg PO NOW STA Stop: 05/27/19 22:22 Last Admin: 05/27/19 22:32 Dose: 1 mg Documented by: [id number] Medical Decision Making Differential Diagnosis Differential diagnosis includes: mood disorder, infection, hypoglycemia, electrolyte abnormalities, cardiac sources, intracerebral event, toxicologic, neurologic, as well as others were entertained. Medical Records Attestation: I reviewed the patient's medical records. Home Medications Current Medication List: was personally reviewed by me Laboratory Data Attestation: I reviewed the patient's lab results. Result diagrams: 05/27/19 22:38 05/27/19 22:38 Lab Results 05/27/19 05/27/19 05/27/19 Range/Units 22:28 22:28 22:38 WBC 10.42 (4.8-10.8) K/uL RBC 4.59 L (4.7-6.1) M/uL Hgb 14.3 (14.0-18.0) g/dL Hct 40.9 L (42-52) % MCV 89.1 (80-100) fL MCH 31.2 (25-34) pg MCHC 35.0 (32-36) g/dL RDW Std Deviation 42.2 (36.4-46.3) fL RDW Coeff of Isela 13.1 (11.5-14.5) % Plt Count 273 (130-400) K/uL MPV 8.3 (7.4-10.4) fL Immature Gran % (Auto) 0.4 % Neut % (Auto) 62.8 % Lymph % (Auto) 25.8 % [place] % (Auto) 9.9 % Eos % (Auto) 0.8 % Baso % (Auto) 0.3 % Immature Gran # (Auto) 0.04 H (0.00-0.02) K/uL Neut # (Auto) 6.55 H (1.4-6.5) K/uL Lymph # (Auto) 2.69 (1.2-3.4) K/uL [place] # (Auto) 1.03 H (0.11-0.59) K/uL Eos # (Auto) 0.08 (0-0.5) K/uL Baso # (Auto) 0.03 (0-0.2) K/uL Sodium (136-145) mmol/L Potassium (3.5-5.1) mmol/L Chloride (98-107) mmol/L Carbon Dioxide (21-32) mmol/L Anion Gap (3-11) BUN (7-18) mg/dl Creatinine (0.6-1.4) mg/dl Est Cr Clr Drug Dosing ml/min Est GFR ( Amer) Est GFR (Non-Af Amer) BUN/Creatinine Ratio (10-20) Glucose (70-99) mg/dl Calcium (8.5-10.1) mg/dl Total Bilirubin (0.2-1) mg/dl AST (15-37) U/L ALT (12-78) U/L Alkaline Phosphatase (45-117) U/L Total Protein (6.4-8.2) gm/dl Albumin (3.4-5.0) gm/dl Globulin (2.5-4.0) gm/dl Albumin/Globulin Ratio (0.9-2) TSH (0.300-4.500) uIu/ml Urine Color Yellow Urine Appearance Cloudy A (Clear) Urine pH 5.0 (4.5-7.5) Ur Specific [place] 1.010 (1.000-1.030) Urine Protein Negative (Negative) Urine Glucose (UA) Negative (Negative) Urine Ketones Negative (Negative) Urine Blood Negative (Negative) Urine Nitrite Negative (Negative) Urine Bilirubin Negative (Negative) Urine Urobilinogen Negative (Negative) Ur Leukocyte Esterase Negative (Negative) Urine WBC (Auto) 0 (0-5) /hpf Urine RBC (Auto) 0-4 (0-4) /hpf U Hyaline Cast (Auto) 0 (0-5) /lpf U Epithel Cells (Auto) 0-5 (0-5) /lpf Urine Bacteria (Auto) Negative (Negative) Salicylates (2.8-20) mg/dl Urine Opiates Screen Neg (Neg) Ur Methadone, Qual Neg (Neg) Acetaminophen (10-30) ug/ml Urine Barbiturates Neg (Neg) Ur Phencyclidine (PCP) Neg (Neg) U Amphetamin/Meth Scrn Neg (Neg) MDMA (Ecstasy) Screen Neg (Neg) U Benzodiazepines Scrn Neg (Neg) Ur Cocaine Metabolite Neg (Neg) U Marijuana (THC) Screen Neg (Neg) Ethyl Alcohol mg/dL (0-3) mg/dl 05/27/19 05/27/19 05/27/19 Range/Units 22:38 22:38 22:38 WBC (4.8-10.8) K/uL RBC (4.7-6.1) M/uL Hgb (14.0-18.0) g/dL Hct (42-52) % MCV (80-100) fL MCH (25-34) pg MCHC (32-36) g/dL RDW Std Deviation (36.4-46.3) fL RDW Coeff of Isela (11.5-14.5) % Plt Count (130-400) K/uL MPV (7.4-10.4) fL Immature Gran % (Auto) % Neut % (Auto) % Lymph % (Auto) % [place] % (Auto) % Eos % (Auto) % Baso % (Auto) % Immature Gran # (Auto) (0.00-0.02) K/uL Neut # (Auto) (1.4-6.5) K/uL Lymph # (Auto) (1.2-3.4) K/uL [place] # (Auto) (0.11-0.59) K/uL Eos # (Auto) (0-0.5) K/uL Baso # (Auto) (0-0.2) K/uL Sodium 139 (136-145) mmol/L Potassium 3.4 L (3.5-5.1) mmol/L Chloride 107 (98-107) mmol/L Carbon Dioxide 22 (21-32) mmol/L Anion Gap 11.0 (3-11) BUN 18 (7-18) mg/dl Creatinine 1.02 (0.6-1.4) mg/dl Est Cr Clr Drug Dosing 140.4 ml/min Est GFR ( Amer) 122.9 Est GFR (Non-Af Amer) 106.1 BUN/Creatinine Ratio 17.7 (10-20) Glucose 91 (70-99) mg/dl Calcium 9.0 (8.5-10.1) mg/dl Total Bilirubin 1.1 H (0.2-1) mg/dl AST 13 L (15-37) U/L ALT 20 (12-78) U/L Alkaline Phosphatase 98 (45-117) U/L Total Protein 7.5 (6.4-8.2) gm/dl Albumin 4.3 (3.4-5.0) gm/dl Globulin 3.2 (2.5-4.0) gm/dl Albumin/Globulin Ratio 1.3 (0.9-2) TSH 4.230 (0.300-4.500) uIu/ml Urine Color Urine Appearance (Clear) Urine pH (4.5-7.5) Ur Specific [place] (1.000-1.030) Urine Protein (Negative) Urine Glucose (UA) (Negative) Urine Ketones (Negative) Urine Blood (Negative) Urine Nitrite (Negative) Urine Bilirubin (Negative) Urine Urobilinogen (Negative) Ur Leukocyte Esterase (Negative) Urine WBC (Auto) (0-5) /hpf Urine RBC (Auto) (0-4) /hpf U Hyaline Cast (Auto) (0-5) /lpf U Epithel Cells (Auto) (0-5) /lpf Urine Bacteria (Auto) (Negative) Salicylates < 1.7 L (2.8-20) mg/dl Urine Opiates Screen (Neg) Ur Methadone, Qual (Neg) Acetaminophen < 2 L (10-30) ug/ml Urine Barbiturates (Neg) Ur Phencyclidine (PCP) (Neg) U Amphetamin/Meth Scrn (Neg) MDMA (Ecstasy) Screen (Neg) U Benzodiazepines Scrn (Neg) Ur Cocaine Metabolite (Neg) U Marijuana (THC) Screen (Neg) Ethyl Alcohol mg/dL < 3.0 (0-3) mg/dl Blood Pressure Blood Pressure Findings: Elevated blood pressure Blood Pressure Disposition: further management by hospitalist MDM Narrative The patient is a 18 year old male who presents to the ED w/ CC of anxiety beginning 2 months ago but worsened today. Patient was seen and evaluated the bedside. The patient did present with concerns for acute anxiety. The patient is Kirby been seen for similar symptoms earlier today. The patient has had perseverating thoughts on and dying as well as being unable to do activities that he likes as he is worried about having a panic attack. The patient did have blood work completed. Patient was deemed medically cleared. Patient was subsequently evaluated and admitted to 3 . Impression & Plan Anxiety Discharge Plan Visit Data Chief Complaint: Anxiety Stated Complaint: CONSTANT ANXIETY,PANICK ATTACKS ED Provider: Sharad Altamirano Discharge Problem: Anxiety Forms Stand Alone Forms: My [facility], Suicide Prevention Resources Prescriptions Prescriptions: No Action buspirone 5 mg tablet 5 mg PO BID RF: 0 olanzapine 10 mg tablet 10 mg PO DAILY RF: 0 lamotrigine 25 mg tablet 25 mg PO BID RF: 0 The scribe's documentation has been prepared under my direction and personally reviewed by me in its entirety. I confirm that the note above accurately reflects all work, treatment, procedures, and medical decision making performed by me.
[2019-05-28] MEDS ORDERED: ACETAMINOPHEN 325 MG TAB PO PRN (02:02)
[2019-05-28] MEDS ORDERED: BISMUTH SUBSALICYLATE PER ML OMNICELL CHARGE PO PRN (02:02)
[2019-05-28] MEDS ORDERED: ALUMINUM/MAGNESIUM SUSP 30 ML UDC PO PRN (02:02)
[2019-05-28] MEDS ORDERED: SODIUM CHLORIDE 0.65% NA SOLN 45 ML (OCEAN) PRN (02:02)
[2019-05-28] MEDS ORDERED: MAGNESIUM HYDROXIDE SUSP 30 ML UDC PO PRN (02:02)
[2019-05-28] MEDS: LORazepam 1 MG TAB PO PRN ×3 (02:14→17:46)
[2019-05-28] MEDS: lamoTRIgine 25 MG TAB PO SCH ×2 (08:55→21:13)
--- NOTE | 2019-05-28 09:13 | History & Physical ---
Date of Service May 28, 2019 Impression / Recommendations Impression 18-year-old single male from [address] [place] [address], who has a history of bipolar 1 and anxiety disorder (DANO and panic), was hospitalized last month for uncontrollable anxiety and started on olanzapine, and discharged with outpatient treatment at [facility]. He reports his anxiety was controlled for the 3 weeks he remained at home on winter, but worsened significantly 1 week ago when he returned to college. He only had 1 therapy appointment in the month since he was discharged from the hospital, and has had multiple medication adjustments, including olanzapine increased to 10 mg at bedtime last week and buspirone and lamotrigine added 5 days ago. He has decided to withdrawal from school as his anxiety is so severe that he has been unable to go to class or function, and he will be moving back in with his parents and will need outpatient treatment at home. He would benefit from PHP/day programming as he struggles to utilize coping skills to manage his anxiety and is unable to function in his current state. Patient treatment is medically necessary due to the severity of symptoms and inability to function outside of the hospital without the care and assistance of others. (1) Anxiety: 05/28 -symptoms of panic and DANO, psychomotor agitation, and insomnia. -Symptoms have worsened with SSRI treatment in the past. Continue current medications: Olanzapine 10 mg at bedtime and buspirone 5 mg twice daily, and titrate as tolerated. -Fasting lipid profile and glucose were checked for baseline prior to starting an atypical antipsychotic on 04/26/2019, and were within normal limits. -Lorazepam 1 mg every 6 hours as needed severe anxiety. -Attend and participate in groups and therapy, work on healthy coping skills and discharge safety plan. -Family meeting with parents. Present on Admission?: Yes (2) Bipolar 1 disorder: 05/28 -continue lamotrigine 25 mg twice daily which was just started last week. Follow standard dose titration. Hydroxyzine as needed for sleep. Encourage daily structure/routine. 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 Chief Complaint "Still anxious and restless". History of Present Illness The patient is well-known to us from recent hospitalization on our unit for 3 days in April 2019, for similar symptoms. He submitted a 72-hour notice shortly after admission. He had recently been started on paroxetine by his PCP to target anxiety, but instead sleep and anxiety worsened. While here, paroxetine was stopped, he had a trial of olanzapine, but had a dystonic reaction, so his dose was decreased. He was discharged on 2.5 mg at bedtime, and referred for outpatient treatment at [facility] in [place]. Patient presented to the ER yesterday, 05/27/2019, reporting panic symptoms. He had been seen in the ER the day prior for anxiety, more intensive outpatient treatment was recommended, and he was discharged home, but returned reporting he was unable to sleep or manage severe anxiety symptoms, and requested inpatient treatment. He endorsed a constant state of panic, with racing thoughts, restlessness, pacing, elevated energy, talking excessively, and inability to calm down even with coping skills. His parents accompanied him and confirmed that he had been trying to use coping skills but nothing was effective. He endorsed decreased appetite, poor sleep (inconsistent and broken), waking several times overnight with panic attacks. He endorsed fears that he was going to , fearfulness, feeling easily overwhelmed and unable to cope. He endorsed racing thoughts of "irrational fears," and inability to rest or settle down, stating he was in constant motion. When anxious, he described violent shaking and fears that he is going to . He endorsed hopelessness and was noted to be tremulous and restless on exam. He received multiple doses of lorazepam 1 mg. His parents stated they are in the process of withdrawing him from college and moving him home, and he will need new outpatient services in [facility]. Admission labs notable for: RBC 4.59, HCT 40.9, potassium 3.4, total bilirubin 1.1, AST 13, TSH 4.230. UA and UDS negative. He signed in voluntarily for treatment. On my assessment, he reports he was "doing better" after discharge 04/27/2020, was on winter break staying with his parents in [place] (near [place]), until he returned to school last week, at which point anxiety increased, "all over again." Stated he felt on edge, worried, restless and unable to sit still. States he is worried about "dying, whether there's a God or not." He has not been able to function, wasn't able to go to classes, only sleeping a couple of hours/night. He has been exercising excessively to try to "get rid of the energy, distract myself," but nothing has helped. He says his Zyprexa was increased last week to 10mg, and buspirone and lamotrigine were added 5 days ago. He only saw his therapist once in the past month, and his psychiatrist twice. He denies SI, HI, AVH, and elevated or euphoric mood. Mood is "afraid," and reports crying multiple times daily. Slept better last night. Past Psychiatric History Current Psychiatric Diagnosis: Anxiety Disorder; R/O Bipolar 1 Outpatient Services: Therapist and psychiatrist at [facility] in [place] Previous Psych Admissions: Here for 3 days in 04/2019 with similar symptoms, submitted a 72-hour notice shortly after admission and was discharged 3 days later as he declined to rescind it. Do You Have Access To A Gun?: No History of Previous Suicide Attempt: No Past Medication Trials: Paroxetine -04/2019, worsened anxiety Olanzapine -started here 04/2019 hospitalization Lamotrigine Buspirone Allergies Allergy/AdvReac Type Severity Reaction Status Date / Time No Known Allergies Allergy Verified 05/27/19 21:59 Home Medications Home Medications Medication Instructions Recorded Confirmed Type buspirone 5 mg PO BID 05/27/19 05/27/19 History lamotrigine 25 mg PO BID 05/27/19 05/27/19 History olanzapine 10 mg PO DAILY 05/27/19 05/27/19 History Family History Family History of: Anxiety (Mother) and Bipolar (Maternal grandmother and uncle) Alcohol History Hx of Alcohol Use Over the Past 12 Months: No Smoking Use Have You Smoked or Used Tobacco Products in the Last 30 Days: No Smoking Status: Never smoker Substance History Hx of Prescription Med Misuse Over the Past 12 Months: No Hx of Over the Counter Med Misuse Over the Past 12 Months: No Hx of Inhalent Misuse Over the Past 12 Months: No Hx of Organic Substance Use Over the Past 12 Months: No Hx of Illegal Substances/Street Drug Use Over Past 12 Months: No Problems as a Result of Past Substance Use: None Identified Personal History Living Arrangements: Home Living Arrangements Comments: Moving home with parents in [place] Childhood: Grew up in [place] Highest Grade Completed: Some College Highest Grade Completed Comment: Was attending [employer] majoring in sports administration, but withdrawing due to mental health issues. Employment Status: Student Marital Status: Single Number Of Children: 0 Beliefs That Will Affect Care: None Current Legal Problems: No Hx Traumatic Life Events: No Patient History Medical History (Updated 05/28/19 @ 10:52 by Archana Engle MD) Bipolar 1 disorder Surgical History No pertinent past surgical history Social History Preferred Language: Vietnamese Communication Ability: Effective Fish Cutter Required: No Beliefs That Will Affect Care: None Feels Safe at Home: Yes Smoking Status: Never smoker Hx Alcohol Use: No Hx Substance Use: No Review of Systems Review of Systems: All systems reviewed & are unremarkable except as noted in HPI & below Physical Exam Psychiatric: Orientation: alert, oriented x 3 and cooperative Apperance: appropriately dressed and appeared stated age malodorous Eye Contact: + fair eye contact Motor Behavior: steady gait and station and + psychomotor agitation (bouncing legs up and down) Speech: normal rate/rhythm/volume of speech Affect: + depressed affect, + anxious affect and mood congruent with affect Mood: + depressed mood and + anxious mood Thought Process: goal directed thought process and + perseveration (on anxiety and fears) Thought Content: + preoccupation (on anxiety) Suicidal Thoughts: denies suicidal thoughts Homicidal Thoughts: denies homicidal thoughts Hallucinations: no auditory hallucinations and no visual hallucinations Cognition: recent memory grossly intact, attention grossly intact and language grossly intact Estimated Intelligence: average estimated intelligence Insight: + impaired insight Judgement: + impaired judgement Vital Signs (Past 24 Hours): Last Vital Signs Temp 36.8 C 05/28/19 02:20 Pulse 92 H 05/28/19 02:20 Resp 16 05/28/19 02:20 BP 133/79 05/28/19 02:20 Pulse Ox 97 05/28/19 02:20 Exam Statement: A physical exam was performed in the ER prior to admission to the unit by Dr. Sharad Altamirano. I accept that physical as correct/medical clearance for the inpatient physical exam. Results & Data Laboratory Results Laboratory Results - last 24 hr 05/27/19 05/27/19 05/27/19 22:28 22:28 22:38 WBC 10.42 RBC 4.59 L Hgb 14.3 Hct 40.9 L MCV 89.1 MCH 31.2 MCHC 35.0 RDW Std Deviation 42.2 RDW Coeff of Isela 13.1 Plt Count 273 MPV 8.3 Immature Gran % (Auto) 0.4 Neut % (Auto) 62.8 Lymph % (Auto) 25.8 [place] % (Auto) 9.9 Eos % (Auto) 0.8 Baso % (Auto) 0.3 Immature Gran # (Auto) 0.04 H Neut # (Auto) 6.55 H Lymph # (Auto) 2.69 [place] # (Auto) 1.03 H Eos # (Auto) 0.08 Baso # (Auto) 0.03 Sodium Potassium Chloride Carbon Dioxide Anion Gap BUN Creatinine Est Cr Clr Drug Dosing Est GFR ( Amer) Est GFR (Non-Af Amer) BUN/Creatinine Ratio Glucose Calcium Total Bilirubin AST ALT Alkaline Phosphatase Total Protein Albumin Globulin Albumin/Globulin Ratio TSH Urine Color Yellow Urine Appearance Cloudy A Urine pH 5.0 Ur Specific Star 1.010 Urine Protein Negative Urine Glucose (UA) Negative Urine Ketones Negative Urine Blood Negative Urine Nitrite Negative Urine Bilirubin Negative Urine Urobilinogen Negative Ur Leukocyte Esterase Negative Urine WBC (Auto) 0 Urine RBC (Auto) 0-4 U Hyaline Cast (Auto) 0 U Epithel Cells (Auto) 0-5 Urine Bacteria (Auto) Negative Salicylates Urine Opiates Screen Neg Ur Methadone, Qual Neg Acetaminophen Urine Barbiturates Neg Ur Phencyclidine (PCP) Neg U Amphetamin/Meth Scrn Neg MDMA (Ecstasy) Screen Neg U Benzodiazepines Scrn Neg Ur Cocaine Metabolite Neg U Marijuana (THC) Screen Neg Ethyl Alcohol mg/dL 05/27/19 05/27/19 05/27/19 22:38 22:38 22:38 WBC RBC Hgb Hct MCV MCH MCHC RDW Std Deviation RDW Coeff of Isela Plt Count MPV Immature Gran % (Auto) Neut % (Auto) Lymph % (Auto) [place] % (Auto) Eos % (Auto) Baso % (Auto) Immature Gran # (Auto) Neut # (Auto) Lymph # (Auto) [place] # (Auto) Eos # (Auto) Baso # (Auto) Sodium 139 Potassium 3.4 L Chloride 107 Carbon Dioxide 22 Anion Gap 11.0 BUN 18 Creatinine 1.02 Est Cr Clr Drug Dosing 140.4 Est GFR ( Amer) 122.9 Est GFR (Non-Af Amer) 106.1 BUN/Creatinine Ratio 17.7 Glucose 91 Calcium 9.0 Total Bilirubin 1.1 H AST 13 L ALT 20 Alkaline Phosphatase 98 Total Protein 7.5 Albumin 4.3 Globulin 3.2 Albumin/Globulin Ratio 1.3 TSH 4.230 Urine Color Urine Appearance Urine pH Ur Specific Star Urine Protein Urine Glucose (UA) Urine Ketones Urine Blood Urine Nitrite Urine Bilirubin Urine Urobilinogen Ur Leukocyte Esterase Urine WBC (Auto) Urine RBC (Auto) U Hyaline Cast (Auto) U Epithel Cells (Auto) Urine Bacteria (Auto) Salicylates < 1.7 L Urine Opiates Screen Ur Methadone, Qual Acetaminophen < 2 L Urine Barbiturates Ur Phencyclidine (PCP) U Amphetamin/Meth Scrn MDMA (Ecstasy) Screen U Benzodiazepines Scrn Ur Cocaine Metabolite U Marijuana (THC) Screen Ethyl Alcohol mg/dL < 3.0 Current Inpatient Medications Current Inpatient Medications: Current Inpatient Medications Acetaminophen (Tylenol) 650 mg PO Q4H PRN PRN Reason: Headache or Minor Fever Stop: 06/27/19 02:01 Al Hydrox/Mg Hydrox/Simethicone (Maalox) 30 ml PO Q4H PRN PRN Reason: GI Upset Stop: 06/27/19 02:01 Bismuth Subsalicylate (Kaopectate) 15 ml PO PRN PRN PRN Reason: Loose Stool Stop: 06/27/19 02:01 Buspirone HCl (Buspar) 5 mg PO BID QUINTIN Stop: 06/27/19 08:59 Last Admin: 05/28/19 08:55 Dose: 5 mg Documented by: Hydroxyzine HCl (Vistaril) 50 mg PO HSZ PRN PRN Reason: Insomnia Stop: 06/27/19 02:01 Hydroxyzine HCl (Vistaril) 25 mg PO Q4H PRN PRN Reason: Anxiety Stop: 06/27/19 02:01 Lamotrigine (Lamictal) 25 mg PO BID QUINTIN Stop: 06/27/19 08:59 Last Admin: 05/28/19 08:55 Dose: 25 mg Documented by: Lorazepam (Ativan) 1 mg PO Q6 PRN PRN Reason: Anxiety Stop: 06/27/19 02:03 Last Admin: 05/28/19 02:14 Dose: 1 mg Documented by: Magnesium Hydroxide (Milk Of Magnesia) 30 ml PO DAILY PRN PRN Reason: Constipation Stop: 06/27/19 02:01 Olanzapine (Zyprexa) 10 mg PO HS QUINTIN Stop: 06/27/19 21:59 Sodium Chloride ([place] Nasal) 1 - 2 sprays NA PRN PRN PRN Reason: Nasal Dryness/Congestion Stop: 06/27/19 02:01
[2019-05-28] MEDS: OLANZapine 10 MG TAB PO SCH (21:14)
[2019-05-29] MEDS: lamoTRIgine 25 MG TAB PO SCH ×2 (08:56→20:30)
--- NOTE | 2019-05-29 13:17 | Psychiatric Progress Note ---
Date of Service May 29, 2019 Impression / Recommendations Impression 18-year-old single male from [address] [place] [address], who has a history of bipolar 1 and anxiety disorder (DANO and panic), was hospitalized last month for uncontrollable anxiety and started on olanzapine, and discharged with outpatient treatment at [facility]. He reports his anxiety was controlled for the 3 weeks he remained at home on winter, but worsened significantly 1 week ago when he returned to college. He only had 1 therapy appointment in the month since he was discharged from the hospital, and has had multiple medication adjustments, including olanzapine increased to 10 mg at bedtime last week and buspirone and lamotrigine added 5 days ago. He has decided to withdrawal from school as his anxiety is so severe that he has been unable to go to class or function, and he will be moving back in with his parents and will need outpatient treatment at home. He is agreeable with referral to a PHP in the area to allow ongoing intensive psychiatric treatment. Although patient does report improvement in his anxiety, additional time is recommended to ensure that this improvement is sustainable and that patient will be reasonably unable to function in his current state. At this point, it is believed that patient would not be expected to tolerate community re-entry and would be at high risk of decompensation and rapid re-hospitalization. Patient treatment is medically necessary due to the severity of symptoms and inability to function outside of the hospital without the care and assistance of others. For this reason, hospitalization beyond patient's 72-hour AMA discharge request is being recommended. (1) Anxiety: 05/28 -symptoms of panic and DANO, psychomotor agitation, and insomnia. -Symptoms have worsened with SSRI treatment in the past. Continue current medications: Olanzapine 10 mg at bedtime and buspirone 5 mg twice daily, and titrate as tolerated. -Fasting lipid profile and glucose were checked for baseline prior to starting an atypical antipsychotic on 04/26/2019, and were within normal limits. -Lorazepam 1 mg every 6 hours as needed severe anxiety. -Attend and participate in groups and therapy, work on healthy coping skills and discharge safety plan. -Family meeting with parents. 05/29 - Continue current medication regimen - Pt has been requiring occasional prn doses of lorazepam for acute anxiety - Ongoing participation in group programming - Pt submitted 72-hour notice to leave treatment AMA - discharge is felt to be inappropriate and high risk at this time. Expires 05/31 at 1909. - Family meeting with parents this afternoon - Refer to outpatient PHP (2) Bipolar 1 disorder: 05/28 -continue lamotrigine 25 mg twice daily which was just started last week. Follow standard dose titration. Hydroxyzine as needed for sleep. Encourage daily structure/routine. 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 Chief Complaint "I just wanted to go home, I've been bored." Review of Systems Notes Constitutional: denied Cardiovascular: denied Respiratory: denied Gastrointestinal: denied Neurological: denied Psychiatric: denies symptoms other than stated above Total of at least 10 systems reviewed, pertinent positives as above and in HPI. Sleep Information Total Hours of Sleep: 6.5 Sleep Comments: . Meal Information Percent Meal Consumed - Breakfast: 50 Percent Meal Consumed - Lunch: 100 Percent Meal Consumed - Dinner: 90 Subjective Subjective Patient was seen & assessed and interval progress reviewed with nursing and social work. Staff report the patient has been attending group programming, and continues to experience intermittent anxiety attacks. Pt did submit his 72-hour notice requesting to leave [facility], which expires on 05/31 at 1909. Pt had a family meeting with his parents this afternoon. Pt was seen today to assess progress since admission. Pt states that he is frustrated as "I just wanted to go home." Pt reports perceived improvement in anxiety and feels he is ready to return home. Pt states that prior to admission, he was experiencing panic attacks "every 5 minutes, lasting for "hours sometimes." He states that since admission, "I've only had like two, and none today." Pt continues to deny SI. He states he is somewhat frustrated as "I had to withdraw from school. I didn't really want to, but I had to decide by Tuesday." Pt is willing for a partial hospitalization program after discharge, recognizing the need to have an ongoing supportive environment to address his significant anxiety concerns. He was provided with reasoning as to why discharge was not perceived to be safe/appropriate today. He denied additional questions on this topic, or other concerns at this time. Physical Exam Psychiatric Orientation: alert, oriented x 3 and cooperative (but visibly frustrated) Apperance: appropriately dressed, appropriately groomed and appeared stated age Eye Contact: + fair eye contact (only intermittent direct eye contract) Motor Behavior: steady gait and station and no abnormal motor movements Speech: normal rate/rhythm/volume of speech (brief responses to questions) Affect: + anxious affect and mood congruent with affect Mood: + anxious mood (though admits to improvement) Thought Process: goal directed thought process, clear/coherent thought process and thought association intact Thought Content: reality based without delusions; no hopelessness Suicidal Thoughts: denies suicidal thoughts Homicidal Thoughts: denies homicidal thoughts Hallucinations: no auditory hallucinations and no visual hallucinations Cognition: attention grossly intact and language grossly intact Insight: + impaired insight Judgement: + fair judgement Vital Signs (Past 24 Hours) Last Vital Signs Temp 36.6 C 05/29/19 06:46 Pulse 103 H 05/29/19 06:47 Resp 18 05/29/19 06:46 BP 118/72 05/29/19 06:47 Pulse Ox 97 05/28/19 02:20 Results & Data Current Inpatient Medications Current Inpatient Medications: Current Inpatient Medications Acetaminophen (Tylenol) 650 mg PO Q4H PRN PRN Reason: Headache or Minor Fever Stop: 06/27/19 02:01 Al Hydrox/Mg Hydrox/Simethicone (Maalox) 30 ml PO Q4H PRN PRN Reason: GI Upset Stop: 06/27/19 02:01 Bismuth Subsalicylate (Kaopectate) 15 ml PO PRN PRN PRN Reason: Loose Stool Stop: 06/27/19 02:01 Buspirone HCl (Buspar) 5 mg PO BID QUINTIN Stop: 06/27/19 08:59 Last Admin: 05/29/19 08:56 Dose: 5 mg Documented by: Hydroxyzine HCl (Vistaril) 50 mg PO HSZ PRN PRN Reason: Insomnia Stop: 06/27/19 02:01 Last Admin: 05/28/19 22:20 Dose: 50 mg Documented by: Hydroxyzine HCl (Vistaril) 25 mg PO Q4H PRN PRN Reason: Anxiety Stop: 06/27/19 02:01 Lamotrigine (Lamictal) 25 mg PO BID QUINTIN Stop: 06/27/19 08:59 Last Admin: 05/29/19 08:56 Dose: 25 mg Documented by: Lorazepam (Ativan) 1 mg PO Q6 PRN PRN Reason: Anxiety Stop: 06/27/19 02:03 Last Admin: 05/28/19 17:46 Dose: 1 mg Documented by: Magnesium Hydroxide (Milk Of Magnesia) 30 ml PO DAILY PRN PRN Reason: Constipation Stop: 06/27/19 02:01 Olanzapine (Zyprexa) 10 mg PO HS QUNITIN Stop: 06/27/19 21:59 Last Admin: 05/28/19 21:14 Dose: 10 mg Documented by: Sodium Chloride ([place] Nasal) 1 - 2 sprays NA PRN PRN PRN Reason: Nasal Dryness/Congestion Stop: 06/27/19 02:01 Mental Health & Subst Abuse Tx Psychiatrist Name of Psychiatrist: Dwight Rico Psychiatrist's Date of Appointment with Psychiatrist: 06/07/19 Time of Appointment with Psychiatrist: 8:45am Psychiatric Appointment Comment: [address] [place] [address] Therapist Name of Therapist: Dwight Ignacio Therapist's Date of Therapist Appointment: 06/05/19 Time of Therapist Appointment: 9:00am Therapy Appointment Comment: [address] [place] [address] Photocomposition Keyboard Operator Name of Photocomposition Keyboard Operator: None Post Discharge Appointments Primary Care Physician Name Of Family Doctor: Joan Pyle Primary Care Provider Appointment Comment: [address] [place] [address] Contact Information Discharge Discharge Address: [address] [place] [id number]
[2019-05-29] MEDS: OLANZapine 10 MG TAB PO SCH (20:30)
[2019-05-30] MEDS: lamoTRIgine 25 MG TAB PO SCH ×2 (08:45→21:03)
--- NOTE | 2019-05-30 12:58 | Psychiatric Progress Note ---
Date of Service May 30, 2019 Impression / Recommendations Impression 18-year-old single male from [address] [place] [address], who has a history of bipolar 1 and anxiety disorder (DANO and panic), was hospitalized last month for uncontrollable anxiety and started on olanzapine, and discharged with outpatient treatment at [facility]. He reports his anxiety was controlled for the 3 weeks he remained at home on winter, but worsened significantly 1 week ago when he returned to college. He only had 1 therapy appointment in the month since he was discharged from the hospital, and has had multiple medication adjustments, including olanzapine increased to 10 mg at bedtime last week and buspirone and lamotrigine added 5 days ago. He has decided to withdrawal from school as his anxiety is so severe that he has been unable to go to class or function, and he will be moving back in with his parents and will need outpatient treatment at home. He is agreeable with referral to a PHP in the area to allow ongoing intensive psychiatric treatment. Although patient does report improvement in his anxiety, additional time is recommended to ensure that this improvement is sustainable and that patient will be reasonably unable to function in his current state. At this point, it is believed that patient would not be expected to tolerate community re-entry and would be at high risk of decompensation and rapid re-hospitalization. Patient treatment is medically necessary due to the severity of symptoms and inability to function outside of the hospital without the care and assistance of others. For this reason, hospitalization beyond patient's 72-hour AMA discharge request is being recommended. (1) Anxiety: 05/28 -symptoms of panic and DANO, psychomotor agitation, and insomnia. -Symptoms have worsened with SSRI treatment in the past. Continue current medications: Olanzapine 10 mg at bedtime and buspirone 5 mg twice daily, and titrate as tolerated. -Fasting lipid profile and glucose were checked for baseline prior to starting an atypical antipsychotic on 04/26/2019, and were within normal limits. -Lorazepam 1 mg every 6 hours as needed severe anxiety. -Attend and participate in groups and therapy, work on healthy coping skills and discharge safety plan. -Family meeting with parents. 05/29 - Continue current medication regimen - Pt has been requiring occasional prn doses of lorazepam for acute anxiety - Ongoing participation in group programming - Pt submitted 72-hour notice to leave treatment AMA - discharge is felt to be inappropriate and high risk at this time. Expires 05/31 at 1910. - Family meeting with parents this afternoon - Refer to outpatient PHP 05/30 - Continue treatment plan as outlined above - Referring to PHPs near [place] - awaiting updates - Discharge based on 72-hour notice remains high risk at this time. (2) Bipolar 1 disorder: 05/28 -continue lamotrigine 25 mg twice daily which was just started last week. Follow standard dose titration. Hydroxyzine as needed for sleep. Encourage daily structure/routine. 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 Chief Complaint "Pretty good. I was frustrated yesterday because I just wanted to go home, but I get it. Today's a better day." Review of Systems Notes Constitutional: denied Cardiovascular: denied Respiratory: denied Gastrointestinal: denied Neurological: denied Psychiatric: denies symptoms other than stated above Total of at least 10 systems reviewed, pertinent positives as above and in HPI. Sleep Information Total Hours of Sleep: 8.75 Sleep Comments: pt appeared to sleep 1.75 hrs during evening shift. pt on q-15 minute checks Meal Information Percent Meal Consumed - Breakfast: 50 Percent Meal Consumed - Lunch: 100 Percent Meal Consumed - Dinner: 100 Subjective Subjective Patient was seen & assessed and interval progress reviewed with treatment team. Staff report the patient has continued to attend group programming. He rated his mood an 8/10 and "hopeful" reportedly slept well last evening. Patient was seen today to assess progress since admission. Pt gives verbal consent to allow Paula Lozano PA-C to observe today's encounter. Pt states that he is feeling "pretty good" today. He offers an apology for "being so frustrated" yesterday, admitting he was hopeful for discharge but is understanding of the importance of aftercare in his overall improvement. Pt states that his symptoms are improving greatly, though "the anxiety is still there a little bit." When asked want patient feels will be most helpful in maintaining anxiety, he states "I think just trying to stay positive." He denies suicidal ideation at this time and remains agreeable for a PHP on discharge. Pt denies other needs or concerns today. Physical Exam Psychiatric Orientation: alert, oriented x 3 and cooperative Apperance: appropriately dressed, appropriately groomed and appeared stated age Eye Contact: good eye contact Motor Behavior: steady gait and station and no abnormal motor movements Speech: normal rate/rhythm/volume of speech Affect: euthymic affect, + anxious affect and mood congruent with affect Mood: + anxious mood ("the anxiety is still there a little bit") Thought Process: goal directed thought process, clear/coherent thought process and thought association intact Thought Content: reality based without delusions; no hopelessness Suicidal Thoughts: denies suicidal thoughts and denies suicidal intent Homicidal Thoughts: denies homicidal thoughts Hallucinations: no auditory hallucinations and no visual hallucinations Cognition: attention grossly intact and language grossly intact Insight: + fair insight Judgement: + fair judgement Vital Signs (Past 24 Hours) Last Vital Signs Temp 36.6 C 05/30/19 06:54 Pulse 79 05/30/19 06:55 Resp 18 05/30/19 06:54 BP 116/75 05/30/19 06:55 Pulse Ox 97 05/28/19 02:20 Results & Data Current Inpatient Medications Current Inpatient Medications: Current Inpatient Medications Acetaminophen (Tylenol) 650 mg PO Q4H PRN PRN Reason: Headache or Minor Fever Stop: 06/27/19 02:01 Al Hydrox/Mg Hydrox/Simethicone (Maalox) 30 ml PO Q4H PRN PRN Reason: GI Upset Stop: 06/27/19 02:01 Bismuth Subsalicylate (Kaopectate) 15 ml PO PRN PRN PRN Reason: Loose Stool Stop: 06/27/19 02:01 Buspirone HCl (Buspar) 5 mg PO BID QUINTIN Stop: 06/27/19 08:59 Last Admin: 05/30/19 08:45 Dose: 5 mg Documented by: Hydroxyzine HCl (Vistaril) 50 mg PO HSZ PRN PRN Reason: Insomnia Stop: 06/27/19 02:01 Last Admin: 05/29/19 21:12 Dose: 50 mg Documented by: Hydroxyzine HCl (Vistaril) 25 mg PO Q4H PRN PRN Reason: Anxiety Stop: 06/27/19 02:01 Lamotrigine (Lamictal) 25 mg PO BID QUINTIN Stop: 06/27/19 08:59 Last Admin: 05/30/19 08:45 Dose: 25 mg Documented by: Lorazepam (Ativan) 1 mg PO Q6 PRN PRN Reason: Anxiety Stop: 06/27/19 02:03 Last Admin: 05/28/19 17:46 Dose: 1 mg Documented by: Magnesium Hydroxide (Milk Of Magnesia) 30 ml PO DAILY PRN PRN Reason: Constipation Stop: 06/27/19 02:01 Olanzapine (Zyprexa) 10 mg PO HS QUINTIN Stop: 06/27/19 21:59 Last Admin: 05/29/19 20:30 Dose: 10 mg Documented by: Sodium Chloride ([place] Nasal) 1 - 2 sprays NA PRN PRN PRN Reason: Nasal Dryness/Congestion Stop: 06/27/19 02:01 Mental Health & Subst Abuse Tx Psychiatrist Name of Psychiatrist: Dwight Rico Psychiatrist's Date of Appointment with Psychiatrist: 06/07/19 Time of Appointment with Psychiatrist: 8:45am Psychiatric Appointment Comment: [address] [place] [address] Therapist Name of Therapist: Dwight Ignacio Therapist's Date of Therapist Appointment: 06/05/19 Time of Therapist Appointment: 9:00am Therapy Appointment Comment: [address] [place] [address] Electronic Publishing Specialist Name of Electronic Publishing Specialist: None Post Discharge Appointments Primary Care Physician Name Of Family Doctor: Joan Pyle Primary Care Provider Appointment Comment: [address] [place] [address] Contact Information Discharge Discharge Address: [address] [place] [address]
[2019-05-30] MEDS: OLANZapine 10 MG TAB PO SCH (21:03)
--- NOTE | 2019-05-31 08:39 | Discharge Summary ---
Date of Service May 31, 2019 History of Present Illness The patient is well-known to us from recent hospitalization on our unit for 3 days in April 2019, for similar symptoms. He submitted a 72-hour notice shortly after admission. He had recently been started on paroxetine by his PCP to target anxiety, but instead sleep and anxiety worsened. While here, paroxetine was stopped, he had a trial of olanzapine, but had a dystonic reaction, so his dose was decreased. He was discharged on 2.5 mg at bedtime, and referred for outpatient treatment at [facility] in [place]. Patient presented to the ER yesterday, 05/27/2019, reporting panic symptoms. He had been seen in the ER the day prior for anxiety, more intensive outpatient treatment was recommended, and he was discharged home, but returned reporting he was unable to sleep or manage severe anxiety symptoms, and requested inpatient treatment. He endorsed a constant state of panic, with racing thoughts, restlessness, pacing, elevated energy, talking excessively, and inability to calm down even with coping skills. His parents accompanied him and confirmed that he had been trying to use coping skills but nothing was effective. He endorsed decreased appetite, poor sleep (inconsistent and broken), waking several times overnight with panic attacks. He endorsed fears that he was going to , fearfulness, feeling easily overwhelmed and unable to cope. He endorsed racing thoughts of "irrational fears," and inability to rest or settle down, stating he was in constant motion. When anxious, he described violent shaking and fears that he is going to . He endorsed hopelessness and was noted to be tremulous and restless on exam. He received multiple doses of lorazepam 1 mg. His parents stated they are in the process of withdrawing him from college and moving him home, and he will need new outpatient services in [facility]. Admission labs notable for: RBC 4.59, HCT 40.9, potassium 3.4, total bilirubin 1.1, AST 13, TSH 4.230. UA and UDS negative. He signed in voluntarily for treatment. On my assessment, he reports he was "doing better" after discharge 04/27/2020, was on winter break staying with his parents in [place] (near [place]), until he returned to school last week, at which point anxiety increased, "all over again." Stated he felt on edge, worried, restless and unable to sit still. States he is worried about "dying, whether there's a God or not." He has not been able to function, wasn't able to go to classes, only sleeping a couple of hours/night. He has been exercising excessively to try to "get rid of the energy, distract myself," but nothing has helped. He says his Zyprexa was increased last week to 10mg, and buspirone and lamotrigine were added 5 days ago. He only saw his therapist once in the past month, and his psychiatrist twice. He denies SI, HI, AVH, and elevated or euphoric mood. Mood is "afraid," and reports crying multiple times daily. Slept better last night. Physical Exam Psychiatric Orientation: alert, oriented x 3 and cooperative Apperance: appropriately dressed and appropriately groomed Eye Contact: good eye contact Motor Behavior: steady gait and station and no abnormal motor movements Speech: normal rate/rhythm/volume of speech Affect: euthymic affect and mood congruent with affect Mood: no depressed mood ("Feeling pretty good") Thought Process: goal directed thought process, clear/coherent thought process and thought association intact Thought Content: reality based without delusions; no hopelessness Suicidal Thoughts: denies suicidal thoughts and denies suicidal intent Homicidal Thoughts: denies homicidal thoughts Hallucinations: no auditory hallucinations and no visual hallucinations Cognition: remote memory grossly intact, attention grossly intact and language grossly intact Insight: + fair insight Judgement: + fair judgement Vital Signs (Past 24 Hours) Last Vital Signs Temp 36.6 C 05/31/19 06:31 Pulse 87 05/31/19 06:31 Resp 16 05/31/19 06:31 BP 107/70 05/31/19 06:31 Pulse Ox 97 05/28/19 02:20 Principal Diagnosis - Generalized anxiety disorder, with panic episodes - Bipolar disorder, type I Psychiatric Data 18-year-old male from [address] [place] [address], admitted voluntarily for inpatient psychiatric admission on 05/28/2019. Pt has a history of bipolar 1 and anxiety disorder (DANO and panic), and was hospitalized at [facility] last month for uncontrollable anxiety and started on olanzapine, and discharged with outpatient treatment at [facility] at [place]. He reported his anxiety was controlled for the 3 weeks he remained at home on winter, but worsened significantly 1 week prior to re-admission when he returned to college. He only had 1 therapy appointment in the month since he was discharged from the hospital, and had had multiple medication adjustments, including olanzapine increased to 10 mg at bedtime one week prior to admission and buspirone and lamotrigine added 5 days prior. Pt had presented to the ED with his parents prior to admission and was able to be safety planned home with additional resources and a decision to withdraw from school for the semester. He rapidly represented to the ED with ongoing panic and inability to function in the outpatient setting - therefore inpatient psychiatric hospitalization was pursued. During his hospitalization, patient had decided to withdrawal from school as his anxiety had been so severe he has been unable to go to class or function. He will be moving back in with his parents and was agreeable with referral to a PHP to allow ongoing intensive psychiatric treatment. Over the course of the patient's admission, he verbalized significant improvement in anxiety, and continued to deny suicidal ideation. He was able to attend group and recreational programming and interacted appropriately with peers. Patient invited his parents to participate in a family meeting, where aftercare and safety planning was discussed. Patient also completed a safety plan prior to his discharge, which was personally reviewed by this provider. It should be noted, that shortly after patient's admission he did submit a 72-hour notice requesting to leave treatment AMA. At the time this request was submitted, patient was continuing to experience episodes of panic and did not have adequate outpatient support to ensure community reentry would be successful. As his discharge at that time what has been high risk, patient was retained until appropriate outpatient support could be achieved. Plans for discharge were reviewed with the patient and his parents, who denied any safety concerns related to him returning home. Patient is scheduled to begin a partial hospitalization program on 06/01/2019, and has additional appointments with his psychiatrist and therapist to allow for timely follow-up after hospital discharge. Based on review of patient's case and their current presentation, risk of harm to self or others is no longer perceived to be acute. Management of symptoms on an outpatient basis seems the most appropriate and least restrictive setting. He will participate in a PHP to continue to develop these skills and ensure stability of assessment. Pt seems appropriate for discharge with [facility]. Pt verbalized understanding of discharge plan reviewed and is agreeable with plan to be discharged home with parents today. Day of Discharge Assessment Patient's case was reviewed and discussed during morning report. Staff states the patient has continued to interact with peers, and rated his mood a 9/10 and "eager for discharge" last evening. Aftercare appointments have been arranged, patient is scheduled to begin a partial hospitalization program beginning 06/01/2019. Patient has reported plan to follow through with academic withdrawal for the semester. Patient was seen today to assess readiness for discharge. He provides verbal consent to allow Paula Lozano PA-C to observe today's encounter. Patient states that "I am feeling pretty good." He states he had visits from his mother and grandmother last evening, which went well. Patient is aware of aftercare plan for him to begin partial hospitalization program starting tomorrow. He admits that there has been significant improvement in his level of anxiety, but remains agreeable to following up with this program to continue to develop adequate coping strategies to manage these symptoms. Patient denies suicidal ideation or any self-harm thoughts. He is able to contract for safety outside of the hospital setting, and is requesting discharge home today. Patient remains agreeable with continuing his home medication regimen, and following up with his outpatient providers for any medication adjustments as indicated. He reports feeling as though all of his treatment goals have been met, and denies other needs or concerns at this time. Discharge plan was reviewed with the patient who verbalized understanding and is agreeable with returning home today. His father is planning to pick him up this afternoon to transport him home. ROS: Constitutional: denied Cardiovascular: denied Respiratory: denied Gastrointestinal: denied Neurological: denied Psychiatric: denies symptoms other than stated above Total of at least 10 systems reviewed, pertinent positives as above and in HPI. Transition of Care Transition Of Care Record: was reviewed with the patient Advance Directives Advance Directives Information Provided: Yes Advance Directives: No Mental Health Advance Directive: No Advance Directives on File: No Living Will: No Power of Bricklayer: No Advance Directives Reason:: Declines as Mental Health Visit. Risk Factors Assessment Presenting risk factors reviewed on discharge. Precipitating stressors mitigated by: admission for inpatient psychiatric observation and treatment, continuation of home medication regimen, attendance of therapeutic treatment groups, development of healthy and effective coping strategies, involvement of outpatient supports, completion of a safety plan, confirmation of guns and weapons being secured, and education on diagnoses. Pt has demonstrated improvement in condition with regard to improvement in level of anxiety, continued denial of SI, and involvement of family in discussion regarding academic withdrawal, referral for PHP, and other safety planning discussions. At this time, patient is requesting discharge and is no longer considered to be at acute risk of harm to himself or others. Pt will be discharged with recommendation for ongoing outpatient psychiatric treatment. Male: Yes : Yes Do You Have Access To A Gun?: No Health Problems: No Mental Health Diagnoses: Yes Substance Use Disorders: No Previous Attempt: No Family History of Suicide: No Previous Psychiatric Hospitalization: Yes Hopelessness: Yes Smoker: No Protective Factors Assessment : No Responsible for Young Children: No Employed: No Supportive Family: Yes Tobacco Cessation at Discharge Tobacco Cessation Medication Prescribed at Discharge: Not Applicable/Non-Smoker Total Time Total Time Spent: Greater Than 30 Minutes Total Time Includes: Examination of the patient, Discharge Planning, Medication Reconciliation and Communication with other providers Discharge Data Lab Results 05/27/19 05/27/19 05/27/19 22:28 22:28 22:38 WBC 10.42 RBC 4.59 L Hgb 14.3 Hct 40.9 L MCV 89.1 MCH 31.2 MCHC 35.0 RDW Std Deviation 42.2 RDW Coeff of Isela 13.1 Plt Count 273 MPV 8.3 Immature Gran % (Auto) 0.4 Neut % (Auto) 62.8 Lymph % (Auto) 25.8 Hockley % (Auto) 9.9 Eos % (Auto) 0.8 Baso % (Auto) 0.3 Immature Gran # (Auto) 0.04 H Neut # (Auto) 6.55 H Lymph # (Auto) 2.69 Hockley # (Auto) 1.03 H Eos # (Auto) 0.08 Baso # (Auto) 0.03 Sodium Potassium Chloride Carbon Dioxide Anion Gap BUN Creatinine Est Cr Clr Drug Dosing Est GFR ( Amer) Est GFR (Non-Af Amer) BUN/Creatinine Ratio Glucose Calcium Total Bilirubin AST ALT Alkaline Phosphatase Total Protein Albumin Globulin Albumin/Globulin Ratio TSH Urine Color Yellow Urine Appearance Cloudy A Urine pH 5.0 Ur Specific Douglass 1.010 Urine Protein Negative Urine Glucose (UA) Negative Urine Ketones Negative Urine Blood Negative Urine Nitrite Negative Urine Bilirubin Negative Urine Urobilinogen Negative Ur Leukocyte Esterase Negative Urine WBC (Auto) 0 Urine RBC (Auto) 0-4 U Hyaline Cast (Auto) 0 U Epithel Cells (Auto) 0-5 Urine Bacteria (Auto) Negative Salicylates Urine Opiates Screen Neg Ur Methadone, Qual Neg Acetaminophen Urine Barbiturates Neg Ur Phencyclidine (PCP) Neg U Amphetamin/Meth Scrn Neg MDMA (Ecstasy) Screen Neg U Benzodiazepines Scrn Neg Ur Cocaine Metabolite Neg U Marijuana (THC) Screen Neg Ethyl Alcohol mg/dL 05/27/19 05/27/19 05/27/19 22:38 22:38 22:38 WBC RBC Hgb Hct MCV MCH MCHC RDW Std Deviation RDW Coeff of Isela Plt Count MPV Immature Gran % (Auto) Neut % (Auto) Lymph % (Auto) Hockley % (Auto) Eos % (Auto) Baso % (Auto) Immature Gran # (Auto) Neut # (Auto) Lymph # (Auto) Hockley # (Auto) Eos # (Auto) Baso # (Auto) Sodium 139 Potassium 3.4 L Chloride 107 Carbon Dioxide 22 Anion Gap 11.0 BUN 18 Creatinine 1.02 Est Cr Clr Drug Dosing 140.4 Est GFR ( Amer) 122.9 Est GFR (Non-Af Amer) 106.1 BUN/Creatinine Ratio 17.7 Glucose 91 Calcium 9.0 Total Bilirubin 1.1 H AST 13 L ALT 20 Alkaline Phosphatase 98 Total Protein 7.5 Albumin 4.3 Globulin 3.2 Albumin/Globulin Ratio 1.3 TSH 4.230 Urine Color Urine Appearance Urine pH Ur Specific Douglass Urine Protein Urine Glucose (UA) Urine Ketones Urine Blood Urine Nitrite Urine Bilirubin Urine Urobilinogen Ur Leukocyte Esterase Urine WBC (Auto) Urine RBC (Auto) U Hyaline Cast (Auto) U Epithel Cells (Auto) Urine Bacteria (Auto) Salicylates < 1.7 L Urine Opiates Screen Ur Methadone, Qual Acetaminophen < 2 L Urine Barbiturates Ur Phencyclidine (PCP) U Amphetamin/Meth Scrn MDMA (Ecstasy) Screen U Benzodiazepines Scrn Ur Cocaine Metabolite U Marijuana (THC) Screen Ethyl Alcohol mg/dL < 3.0 Hospital Course (1) Anxiety: 05/28 -symptoms of panic and DANO, psychomotor agitation, and insomnia. -Symptoms have worsened with SSRI treatment in the past. Continue current medications: Olanzapine 10 mg at bedtime and buspirone 5 mg twice daily, and titrate as tolerated. -Fasting lipid profile and glucose were checked for baseline prior to starting an atypical antipsychotic on 04/26/2019, and were within normal limits. -Lorazepam 1 mg every 6 hours as needed severe anxiety. -Attend and participate in groups and therapy, work on healthy coping skills and discharge safety plan. -Family meeting with parents. 05/29 - Continue current medication regimen - Pt has been requiring occasional prn doses of lorazepam for acute anxiety - Ongoing participation in group programming - Pt submitted 72-hour notice to leave treatment AMA - discharge is felt to be inappropriate and high risk at this time. Expires 05/31 at 1910. - Family meeting with parents this afternoon - Refer to outpatient PHP 05/30 - Continue treatment plan as outlined above - Referring to PHPs near [place] - awaiting updates - Discharge based on 72-hour notice remains high risk at this time. (2) Bipolar 1 disorder: 05/28 -continue lamotrigine 25 mg twice daily which was just started last week. Follow standard dose titration. Hydroxyzine as needed for sleep. Encourage daily structure/routine. 05/29 - 05/30 - Continue lamotrigine and olanzapine as above - Pt agreeable with pursuing PHP for continued intensive support after discharge Mental Health & Subst Abuse Tx Psychiatrist Name of Psychiatrist: Dwight Rico Psychiatrist's Date of Appointment with Psychiatrist: 06/07/19 Time of Appointment with Psychiatrist: 8:45am Psychiatric App[facility]ment [facility] [address] [facility] [place] [address] Therapist Name of Therapist: Dwight Ignacio Therapist's Date of Therapist Appointment: 06/05/19 Time of Therapist Appointment: 9:00am Therapy Appointment Comment: [address] [place] [facility] [place] [address] Sales Expert Name of Sales Expert: None Post Discharge Appointments Primary Care Physician Name Of Family Doctor: Joan Pyle Primary Care Provider Appointment Comment: [address] [facility] [place], [place] [address] Partial or Psych Rehab Name of Partial or Psych Rehab: [facility] Nursing Agency, [facility] Phone Number of Partial or Psych Rehab: Date of Appointment at Partial or Psych Rehab: 06/01/19 Time of Appointment at Partial or Psych Rehab: 7:45 Partial or Psych Rehab Appointment Comment: arrive at 7:45 for intake Smoking Cessation Counseling Tobacco Cessation Medication Prescribed at Discharge: Not Applicable/Non-Smoker Contact Information Discharge Discharge Address: [address] [place] [address] Discharge Plan Discharge Items Patient Disposition: Home - Self-Care Reason For Visit: BIPOLAR, TYPE 1 Discharge Diagnosis: - Anxiety - Bipolar disorder, type 1 Condition on Discharge: Fair Activity: Resume your previous activity Non-emergency contact: Primary Care Provider, Psychiatrist, Therapist and Rotary Pump Operator Call non-emergency contact if: you have any medication questions and your symptoms worsen Follow-up/Referrals: Kimberly Pyle DO [Primary Care Provider] - Diet: Regular Addtl Attending Provider Instructions: SPECIAL CARE INSTRUCTIONS: 1. Follow through with your scheduled aftercare appointments. If unable to keep an appointment, please call to reschedule. 2. Take your medication only as prescribed. Medication should not be changed or stopped without the approval of your doctor. In the event of worsening symptoms or concerns about side effects, contact your doctor immediately. 3. Utilize new healthy coping skills, anger management skills, and stress management skills learned during your hospitalization. Journal feelings and process them with a support person. Identify stressors or situations that may result in relapse, deterioration or inappropriate behaviors and develop a plan to deal with those issues. 4. If your coping skills are ineffective and you are in crisis, contact your outpatient providers for direction. If unable to reach your providers, please call the CAN HELP LINE AT or go to the closest Emergency Room. 5. Avoid alcohol and un-prescribed drugs. 6. You have been provided with the Mental Health Advance Directives Pamphlet for your review. AFTERCARE APPOINTMENTS: * Please call your insurance company prior to your scheduled appointment to confirm your aftercare providers are covered. Take your insurance information to your appointments. WHO TO CALL AND WHEN: Medical Emergencies: For questions or emergencies related to your hospital stay, please contact the Inpatient Behavioral Health Unit at [phone]. A capability lead is on-call 22/11 for the Behavioral Health Unit for emergencies At any time you feel your situation is an emergency, you may also call 911 immediately. Your Discharge Instructions noted above were prepared by provider Mary Pérez PA-C. Pending Studies at Discharge: No Stand-Alone Forms: My [facility], Smoking Cessation, Suicide Prevention Resources Medications and DC Order Prescriptions: Continued buspirone 5 mg tablet 5 mg PO BID RF: 0 lamotrigine 25 mg tablet 25 mg PO BID RF: 0 Changed olanzapine 10 mg tablet 10 mg PO HS Qty: 0 RF: 0 Discharge Orders: Discharge Order (Routine); Ordered 05/31/19 Ordered By: Mary Pérez Admission Data Admit Date/Time: 05/28/19 01:30 Attending Provider: Archana Engle Admit Provider: Carine Jaimes Primary Care Provider: Kimberly Pyle Other Interventions: Discharge Summary Assessment (RN) Last Done: 05/31/19 10:13 PSY Interdisciplinary Discharge Planning Last Done: 05/31/19 10:13 Coding Level of Care Code 53800 D/C day mgmt > 30 min Diagnoses Anxiety F41.9 Bipolar 1 disorder F31.9
[2019-05-31] MEDS: lamoTRIgine 25 MG TAB PO SCH (09:24)
== END 2019-05-31 12:05 | disposition home or self-care (01) | DRG 880 ==
LOC: ED 21:41 → 3S 05-28 01:30